=== PATIENT | male | born 1955 | race Caucasian/White ===

== ENCOUNTER 2016-04-13 08:05 | Inpatient (IN) | payer OTHER ==
[2016-03-25 14:35] VITALS: BMI 42.0
--- NOTE | 2016-03-25 15:11 | PAT Medication Instructions ---
Service Date Mar 25, 2016. Current Home Medication List Calcium/Vitamin D (Os-Jareth 500 Plus D), 1 TAB PO TID Cholecalciferol (Vitamin D3), 1 TAB PO QAM Cyanocobalamin (Vitamin B-12), 1,000 MCG PO QAM Ferrous Sulfate (Iron), 1 TAB PO QAM Multivitamin (Multivitamin), 1 TAB PO BID Tramadol (Ultram), 50 MG PO Q8H PRN for Pain Warfarin Sod (Jantoven), 10 MG PO ,,,WED, WED, S Warfarin Sod (Jantoven), 7.5 MG PO MON Medication Instructions For Your Scheduled Surgery Warfarin Sod (Jantoven) (patient will hold medication starting 04/07/16 per [facility] instructions) - Hold the following medications the morning of surgery: Multivitamin (Multivitamin), 1 TAB PO BID Cyanocobalamin (Vitamin B-12), 1,000 MCG PO QAM Ferrous Sulfate (Iron), 1 TAB PO QAM Cholecalciferol (Vitamin D3), 1 TAB PO QAM Calcium/Vitamin D (Os-Jareth 500 Plus D), 1 TAB PO TID - Take the following medications the morning of surgery with a sip of water: Tramadol (Ultram), 50 MG PO Q8H PRN for Pain (can take up to four hours prior to surgery if needed) - Take the following medications as scheduled the night before surgery: Tramadol (Ultram), 50 MG PO Q8H PRN for Pain Multivitamin (Multivitamin), 1 TAB PO BID Calcium/Vitamin D (Os-Jareth 500 Plus D), 1 TAB PO TID If you have any questions please call us at [phone] or [phone] ( Yelena) or [phone]
--- NOTE | 2016-03-25 15:42 | DIAGNOSTIC IMAGING REPORT ---
TWO VIEW CHEST CLINICAL HISTORY: Preoperative examination. FINDINGS: PA and lateral chest radiographs are obtained. No prior studies are available for comparison at the time of dictation. The cardiomediastinal silhouette is unremarkable. The lungs and pleural spaces are clear. There is no pneumothorax. The bony thorax appears intact. IMPRESSION: No active disease in the chest. Electronically signed by: King Quintana M.D. 03/25/2016 3:40 PM Dictated Date/Time: 03/25/2016 3:39 PM
[2016-03-25 16:22] LABS: BASO % 0.5 %; BASO ABS # 0.03 K/uL (0-0.2); COMPLETE YES; EOS % 4.6 %; HEMATOCRIT 43.9 % (42-52); IG% 0.2 %; LYMPH % 21.7 %; LYMPH ABS # 1.37 K/uL (1.2-3.4); MEAN CORPUSCULAR HEMOGLOBIN 31.2 pg (25-34); MEAN CORPUSCULAR HGB CONC 35.1 g/dl (32-36); MEAN PLATELET VOLUME 10.2 fL (7.4-10.4); MONO % 11.6 %; NEUT % 61.4 %; PLATELET COUNT 175 K/uL (130-400); RED BLOOD COUNT 4.93 M/uL (4.7-6.1); WHITE BLOOD COUNT 6.32 K/uL (4.8-10.8)
[2016-03-25 16:28] LABS: URINE APPEARANCE CLEAR (CLEAR); URINE BILIRUBIN NEG (NEG); URINE COLOR DK YELLOW; URINE NITRITE NEG (NEG); URINE PH 5.5 (4.5-7.5); URINE SPECIFIC GRAVITY 1.028 (1.000-1.030); UROBILINOGEN NEG (NEG); ZZUR CULT IF INDIC CLEAN CATCH NO
[2016-03-25 16:38] LABS: INR 1.9 (0.9-1.1); PARTIAL THROMBOPLASTIN RATIO 1.5; PROTHROMBIN TIME (PATIENT) 21.3 SECONDS (9.0-12.0)
[2016-03-25 16:45] LABS: BUN/CREATININE RATIO 13.5 (10-20); CALCIUM 9.4 mg/dl (8.5-10.1); CREATININE 1.1 mg/dl (0.60-1.40)
[2016-03-25 16:53] LABS: MANUAL MICROSCOPIC REQUIRED? NO; REVIEW REQ? NO
--- NOTE | 2016-04-07 13:12 | HISTORY & PHYSICAL EXAMINATION ---
DATE OF ADMISSION: 04/13/2016 CHIEF COMPLAINT: Left knee pain. HISTORY OF PRESENT ILLNESS: Mr. Yang is a 60-year-old male with a 20-year history of pain in his left knee. The patient rates his pain a 10/10. He has pain with his daily activities. He has limited standing and walking tolerance. Pain is worse with weightbearing. The patient uses a cane. He has had injections and tramadol. He is unable to take anti-inflammatories due to his chronic Coumadin therapy. PAST MEDICAL HISTORY: History of extensive DVT status post lumbar surgery. He denies heart disease or diabetes. PAST SURGICAL HISTORY: Bariatric surgery, lumbar surgery, bilateral knee arthroscopy, left knee micro surgery, right shoulder rotator cuff repair and appendectomy. SOCIAL HISTORY: The patient drinks alcohol occasionally. He quit smoking in 1994. He lives in a single [place] home. He is currently on disability. FAMILY HISTORY: Positive for DVT in his mom. MEDICATIONS: Calcium citrate 500 mg, multivitamin, iron, cholecalciferol 1000 international units, tramadol p.r.n., Coumadin as directed, cyanocobalamin 1 mg. ALLERGIES: None. REVIEW OF SYSTEMS: See HPI. Ten other systems reviewed, all negative. PHYSICAL EXAMINATION: VITAL SIGNS: Height 5 feet 9 inches, weight 292 pounds. BMI is 43. GENERAL: This is a well-developed, well-nourished male who is alert and oriented x3. Mood and affect are appropriate. HEENT: Normocephalic, atraumatic. Mucous membranes are moist and intact. NECK: Supple without lymphadenopathy. HEART: Regular rate and rhythm without murmurs, rubs or gallops. LUNGS: Clear to auscultation without wheezes or rhonchi. ABDOMEN: Soft and nontender. EXTREMITIES: No ecchymosis, redness or warmth. Left knee shows neutral alignment. Range of motion is from 3-90 degrees. He has +1 laxity. He is neurovascularly intact with +5/5 strength. X-RAY EXAMINATION: AP and lateral views show joint space narrowing and osteophyte formation. IMPRESSION: Degenerative joint disease, left knee. PLAN: The patient will be admitted for a left total knee arthroplasty. We will plan on resuming Coumadin for DVT prophylaxis. The patient is bridging per his hematology consult. He will be on 1.5 mg/kg until his INR is therapeutic. He will have [facility] for home physical therapy.
[2016-04-13] VITALS (8 sets, daily range): BP systolic 99–123; BP diastolic 59–77; PULSE 52–68; TEMP 36.4–36.7; O2SAT 94–98; Ht 175.3 cm; Wt 130.9 kg
[~2016-04-13] VITALS: Ht 175.3 cm; Wt 130.9 kg
[~2016-04-13 08:05] MED LIST: ACETAMINOPHEN 500 MG TAB PO SCH; BACITRACIN 50000 UNIT VIAL ONE; BUPIVACAINE 0.5 % 5 MG/1 ML PF 10ML VIAL ONE; BUPIVACAINE/EPINEPHRINE 0.25% 1:200,000 30 ML VIAL ONE; CALC500C70 PO; CEFAZOLIN 3000 MG/65 ML D5W 65 ML IV SCH; CHOL1000 PO; CYAN10005 PO; CeleBREX 200 MG CAP PO SCH; FAMOTIDINE 20 MG TAB PO SCH; FERR28TA2 PO; GABAPENTIN 300 MG CAP PO SCH; LACTATED RINGER'S 1000ML 1,000 ML IV SCH; LACTATED RINGER'S 1000ML 500 ML IV ONE; LACTATED RINGER'S 1000ML IV SCH; METOCLOPRAMIDE HCL 10 MG TAB PO SCH; MULT-506 PO; ORTHO JOINT ANESTHETIC ONE; OXYCODONE HCL 10 MG TABCR (OXYCONTIN) PO SCH; POLYMYXIN B SULFATE 100,000 UNITS in NSS 100ML IR SCH; POVIDONE-IODINE OP SOLN 30 ML BTL ONE; ROPIVACAINE 5MG/ML 30 ML 150 MG, BUPIVACAINE/EPINEPHR 0.5% MPF 30 ML, KETOROLAC TROMETH... INFIL SCH; TRAM-10 PO; VANCOMYCIN INJ 400 MG in NSS 100ML IR SCH; WARF5TAB7 PO
[2016-04-13] MEDS ORDERED: ONDANSETRON INJ 2 MG/ML 2 ML VIAL IV PRN ×2 (08:30→13:15)
[2016-04-13] MEDS ORDERED: EpHEDrine SULFATE INJ 50 MG/ML AMP IV PRN (08:30)
[2016-04-13] MEDS ORDERED: FENTANYL CITRATE INJ 50 MCG/1 ML 2 ML VIAL IV PRN (08:30)
[2016-04-13] MEDS ORDERED: ATROPINE SULFATE 0.1 MG/ML 5ML SYR IV PRN (08:30)
[2016-04-13] MEDS ORDERED: ENOX120I SQ (09:05)
[2016-04-13 09:13] LABS: PROTHROMBIN TIME (PATIENT) 10.7 SECONDS (9.0-12.0)
[2016-04-13] MEDS ORDERED: MIDAZOLAM HCL 1 MG/ML 2ML VIAL ONE ×2 (10:06→11:52)
--- NOTE | 2016-04-13 10:16 | History & Physical Bridge Note ---
H&P Re-Evaluation Bridge Note: I have examined the patient, reviewed the History & Physical and in the interval since the performance of the History & Physical I have noted the following changes of clinical significance: No changes noted
[2016-04-13] MEDS ORDERED: PROPOFOL IV EMULSION 10 MG/ML 20 ML VIAL IV ONE ×2 (11:57→12:59)
[2016-04-13] MEDS ORDERED: BACITRACIN 50000 UNIT VIAL IR ONE (13:06)
[2016-04-13] MEDS ORDERED: POVIDONE-IODINE OP SOLN 30 ML BTL TOP ONE (13:06)
--- NOTE | 2016-04-13 13:09 | [facility] Post Operative Brief Note ---
Immediate Operative Summary Operative Date Apr 13, 2016. Pre-Operative Diagnosis Degenerative joint disease, left knee Post-Operative Diagnosis Same as preop Procedure(s) Performed Left total knee arthroplasty Surgeon Dr. Babb Accounts Payable Analyst Surgeon(s) Albina Lieberman PA-C Estimated Blood Loss 5 cc Findings djd severe Specimens A: left knee bone and tissue Complication(s) None Disposition Recovery Room / PACU
[2016-04-13] MEDS ORDERED: ALUMINUM/MAGNESIUM/SIMETH (MAALOX MAX) 30 ML UDC PO PRN (13:15)
[2016-04-13] MEDS ORDERED: KETOROLAC TROMETHAMINE 30 MG/ML VIAL IV. PRN (13:15)
[2016-04-13] MEDS ORDERED: SOD PHOSPHATE/SOD BIPHOSPHATE ENEMA 132 ML BTL PR PRN (13:15)
[2016-04-13] MEDS ORDERED: ZOLPIDEM TARTRATE 5 MG TAB PO PRN (13:15)
[2016-04-13] MEDS ORDERED: MAGNESIUM HYDROXIDE SUSP 30 ML UDC PO PRN (13:15)
[2016-04-13] MEDS ORDERED: MoRPHine SULFATE 2 MG/ML CARP IV PRN (13:15)
[2016-04-13] MEDS ORDERED: BISACODYL 10 MG SUPP PR PRN (13:15)
[2016-04-13] MEDS ORDERED: DiphenhydrAMINE HCL 50 MG/ML VIAL IV PRN (13:15)
[2016-04-13] MEDS ORDERED: METOCLOPRAMIDE HCL INJ 5 MG/ML 2 ML VIAL IV PRN (13:15)
[2016-04-13] MEDS ORDERED: TRAMADOL HCL 50 MG TAB PO PRN (13:15)
--- NOTE | 2016-04-13 13:52 | DIAGNOSTIC IMAGING REPORT ---
TWO VIEWS LEFT KNEE CLINICAL HISTORY: Postoperative examination. FINDINGS: AP and crosstable lateral portable views of the left knee are obtained. A left knee arthroplasty is in near anatomic alignment. There has been undersurface remodeling of the patella. No acute fracture is seen. There are expected postoperative changes around the knee including skin clips, a surgical drain, soft tissue edema, and subcutaneous gas. IMPRESSION: Expected postoperative changes status post left knee arthroplasty. No acute fracture is seen. Electronically signed by: King Quintana M.D. 04/13/2016 1:51 PM Dictated Date/Time: 04/13/2016 1:51 PM
--- NOTE | 2016-04-13 14:34 | Anesthesiology Progress Note ---
Anesthesia Post Op Note Date & Time Apr 13, 2016 at 14:35 Vital Signs Pain Intensity: 0 Vital Signs Past 12 Hours Date Time Temp Pulse Resp B/P Pulse Ox O2 Delivery O2 Flow Rate FiO2 04/13/16 14:25 36.7 56 20 106/65 95 Nasal Cannula 2 04/13/16 14:15 49 12 99/61 98 Nasal Cannula 2 04/13/16 14:05 50 13 94/50 97 Nasal Cannula 2 04/13/16 13:55 57 16 95/46 95 Nasal Cannula 2 04/13/16 13:45 60 19 87/47 96 Nasal Cannula 2 04/13/16 13:39 36.9 64 16 88/51 99 Mask 10 04/13/16 09:10 36.7 60 18 123/64 94 Room Air Notes Mental Status: alert / awake / arousable, participated in evaluation Pt Amnestic to Procedure: Yes Nausea / Vomiting: adequately controlled Pain: adequately controlled Airway Patency, RR, SpO2: stable & adequate BP & HR: stable & adequate Hydration State: stable & adequate Neuraxial Anesthesia: was administered, sensory block is resolving Anesthetic Complications: no major complications apparent
[2016-04-13] MEDS: D5W AND 1/2NSS + 20MEQ KCL 1,000 ML IV SCH (15:44)
[2016-04-13] MEDS: ACETAMINOPHEN 500 MG TAB PO SCH ×2 (15:44→21:46)
[2016-04-13] MEDS: WARFARIN SOD 10 MG TAB PO SCH (15:45)
[2016-04-13] MEDS: CEFAZOLIN IV 2,000 MG in DEXTROSE 5% 50ML 50 ML IV SCH (20:24)
[2016-04-13] MEDS: OXYCODONE HCL 10 MG TABCR (OXYCONTIN) PO SCH (20:27)
[2016-04-13] MEDS: SENNA 8.6 MG TAB PO SCH (20:27)
[2016-04-13] MEDS: CALCIUM 600MG + VIT D 400 IU TAB PO SCH (20:27)
--- NOTE | 2016-04-13 22:29 | OPERATIVE REPORT ---
DATE OF OPERATION: 04/13/2016 PREOPERATIVE DIAGNOSES: 1. Degenerative arthritis, left knee. 2. Morbid obesity, BMI of 43. POSTOPERATIVE DIAGNOSES: Same. PROCEDURE: Left total knee with patient-matched implant. SURGEON: Dr. Babb. MARKET DEVELOPMENT DIRECTOR: EREN Klein. ANESTHESIA: Spinal. TOURNIQUET TIME: 75 minutes at 300 mmHg. DRAINS: Hemovac x2. CULTURES: None. COMPLICATIONS: None. COMPONENTS USED: [employer] Journey Knee System: Femur size 8, tibia size 7 x 11, patella size 38. NOTE: EREN Klein, was present and assisted throughout due to the complicated nature of this case. He helped with preparation and setup, he first-assisted throughout, he personally closed the capsule, subcutaneous and skin layers, and applied the postop dressing. DESCRIPTION: Following satisfactory spinal, the patient was supine, a tourniquet was placed. The lower extremity was prepared with ChloraPrep and draped sterilely. Following a surgical timeout, the tourniquet was inflated because of the patient's history of severe posttraumatic arthritis with multiple previous surgeries and his morbidly obese body habitus. A midline incision was made with a median parapatellar arthrotomy. Exposure was difficult given the patient's body habitus. The knee showed grade 4 changes throughout with evidence of old repair of a medial collateral ligament tear. The cruciate ligament was excised. The patient-matched femoral block was applied. Femoral distal rotation and resection were set and completed. The 4-in-1 block was used to finish preparation of the femur. The patient-matched tibial block was applied after removal of soft tissue. Tibial resection was completed. The patella was then freehand cut. Soft tissue balancing was completed in flexion and extension and a trial reduction showed very good tensioning on the collateral ligaments, stable range of motion, and good patellar tracking. The trial components were removed. The capsule was prepared with the orthopedic cocktail. After irrigation, the components were cemented using Simplex G cement. A Betadine soak was performed. When the cement had hardened, the Betadine was irrigated. Two drains were placed. The arthrotomy was closed with #1 Vicryl interrupted. Subcutaneous tissues were closed with 1 and 2-0 Vicryl. The skin was closed with surgical richa. A surface wound VAC was applied. The tourniquet was deflated. The patient was returned to his bed in stable condition. I attest to the content of the Intraoperative Record and any orders documented therein. Any exceptio ns are noted below.
[2016-04-14 00:10] VITALS: BP 95/58; PULSE 48
[2016-04-14] MEDS: D5W AND 1/2NSS + 20MEQ KCL 1,000 ML IV SCH ×2 (01:29→11:50)
[2016-04-14] MEDS: CEFAZOLIN IV 2,000 MG in DEXTROSE 5% 50ML 50 ML IV SCH (03:33)
[2016-04-14 03:36] VITALS: BP 93/58; PULSE 50; TEMP 36.4; O2SAT 95
[2016-04-14] MEDS: ACETAMINOPHEN 500 MG TAB PO SCH ×3 (05:59→21:49)
[2016-04-14 07:22] VITALS: BP 105/53; PULSE 48; TEMP 36.4; O2SAT 94
[2016-04-14 07:34] LABS: MEAN CELL VOLUME 88.1 fL (80-100); MEAN CORPUSCULAR HEMOGLOBIN 31.1 pg (25-34); MEAN CORPUSCULAR HGB CONC 35.3 g/dl (32-36); MEAN PLATELET VOLUME 9.9 fL (7.4-10.4); PLATELET COUNT 139 K/uL (130-400); RED BLOOD COUNT 3.86 M/uL (4.7-6.1); WHITE BLOOD COUNT 9.42 K/uL (4.8-10.8)
[2016-04-14 07:41] LABS: INR 1.1 (0.9-1.1); PROTHROMBIN TIME (PATIENT) 11.6 SECONDS (9.0-12.0)
[2016-04-14 07:56] LABS: CALCIUM 8.5 mg/dl (8.5-10.1); POTASSIUM 4.4 mmol/L (3.5-5.1)
--- NOTE | 2016-04-14 08:00 | Orthopedic Progress Note ---
Orthopedic Progress Note Date of Service Apr 14, 2016. Subjective Post OP Day: 1 Reports: feeling well, Denies: SOB, calf pain, chest pain, light headedness, nausea / vomiting Objective calves soft nontender, N/V intact, dressing C/D/I, A&O x3, toes mobile, hemovac drainage (875/215CC PER SHIFT) Date Time Temp Pulse Resp B/P Pulse Ox O2 Delivery O2 Flow Rate FiO2 04/14/16 07:22 36.4 48 17 105/53 94 Room Air 04/14/16 03:36 36.4 50 18 93/58 95 Room Air 04/14/16 00:10 48 95/58 04/13/16 23:15 Room Air 04/13/16 22:55 36.4 53 18 99/59 94 Room Air 04/13/16 19:33 36.5 68 18 103/64 94 Room Air 04/13/16 18:00 61 16 112/72 96 Nasal Cannula 2.0 04/13/16 16:58 36.4 65 16 117/77 96 Nasal Cannula 2.0 04/13/16 16:12 36.4 55 16 120/68 97 Nasal Cannula 2.0 04/13/16 15:30 36.5 52 16 115/68 98 Nasal Cannula 2.0 04/13/16 15:00 96 Nasal Cannula 2.0 04/13/16 15:00 96 Nasal Cannula 2.0 04/13/16 15:00 36.6 55 16 101/64 96 Nasal Cannula 2.0 04/13/16 14:40 52 16 105/60 96 Nasal Cannula 2 04/13/16 14:25 36.7 56 20 106/65 95 Nasal Cannula 2 04/13/16 14:15 49 12 99/61 98 Nasal Cannula 2 04/13/16 14:05 50 13 94/50 97 Nasal Cannula 2 04/13/16 13:55 57 16 95/46 95 Nasal Cannula 2 04/13/16 13:45 60 19 87/47 96 Nasal Cannula 2 04/13/16 13:39 36.9 64 16 88/51 99 Mask 10 04/13/16 09:10 36.7 60 18 123/64 94 Room Air Laboratory Results 24 Hours: Test 04/13/16 08:48 04/14/16 07:14 Prothromb Time International Ratio 1.0 1.1 Prothrombin Time 10.7 SECONDS 11.6 SECONDS Hematocrit 34.0 % Hemoglobin 12.0 g/dL Assessment & Plan Assessment: POD#1 SP LEFT TKA HISTORY OF EXTENSIVE DVT Inhouse Planning Pain Management: Celebrex, Oxycontin, PO Tylenol, Oxy IR DVT Prophylaxis: TEDs, SCDs, Coumadin, Lovenox Discharge Planning Discharge Planning: home with home health ([facility] WILL NEED NURSING FOR BLOOD DRAWS)
--- NOTE | 2016-04-14 08:11 | Discharge Instructions ---
Discharge Instructions Admission Reason for Admission: Left Knee Degenerative Arthritis Discharge Discharge Diagnosis / Problem: sp left TKA Discharge Goals Goal(s): Decrease discomfort, Improve function, Increase independence Activity Recommendations Activity Limitations: per Instructions/Follow-up section . Instructions / Follow-Up Instructions / Follow-Up ACTIVITY RECOMMENDATIONS: SELF CARE INSTRUCTIONS AFTER TOTAL KNEE REPLACEMENT A. You may need to continue a physical therapy program after discharge from the hospital. There are several options available to you. Your doctor will assist you in selecting the best one for you. 1. An out-patient facility 2 to 3 times a week for therapy or home therapy. 2. Continue working on all exercises taught to you in the hospital. Your goals should be to increase bending of your knee to 90 degrees and beyond and to fully straighten your knee. B. You may progress at your own pace from walking with a walker or crutches to a cane; then to no assistive devices. C. Make walking a part of your daily routine. Be up as much as comfortable with rest periods throughout the day. Rest with leg elevation is very important. Use the ice wrap frequently for the first 3-4 weeks. D. There are no restrictions on activities. You may ride in a car, shop, participate in machine set up operator and all social activities. E. Wear the long elastic stockings (GWEN hose) 20 hours a day for 2 weeks after surgery. They can be removed several times a day for laundering and for a bath. F. You may shower, no tub baths until cleared by your doctor. SPECIAL CARE INSTRUCTIONS: VERY IMPORTANT TO READ AND REVIEW A. There are a few signs you need to watch for after you are home. Call [facility] if you notice any of the followin. Increased severe knee pain. Some pain is expected especially when you exercise. 2. Increased swelling in your leg or knee; pain or swelling of the calf muscle in either lower leg. 3. Any fluid drainage from the incision. 4. Shortness of breath or chest pain. B. Please call [facility] at if you have any concerns or questions about your operation or recovery. The doctor or his nurse will return your call promptly. C. You must take antibiotics before dental work, bladder, bowel or other surgery. Your doctor will provide you with a permanent care to carry describing this precaution. IMPORTANT: * HIGH RISK PATIENTS MAY BE PRESCRIBED A STRONGER BLOOD THINNER. THIS WILL BE PROVIDED AT DISCHARGE. ----LOVENOX + COUMADIN. WILL REQUIRE FRQUENT BLOOD DRAWS. ONCE INR >2.0 MAY STOP LOVENOX INJECTIONS. * CALL IF INCREASED PAIN, REDNESS, DRAINAGE OR FEVER GREATER THAT 101. * WEAR GWEN HOSE 20 HOURS PER DAY FOR 2 WEEKS. * YOU MAY HAVE A LARGE BAND-AID LIKE DRESSING (SILVERON). THIS WILL REMAIN ON YOUR INCISION FOR 7 DAYS, THEN CAN BE REMOVED. IF INCISION IS LEAKING THROUGH DRESSING, CALL THE OFFICE . FOLLOW UP VISIT: If appointment is not already scheduled: Please call [facility] to make a follow-up appointment for 2 weeks after your surgery at . Current Hospital Diet Patient's current hospital diet: Regular Diet Discharge Diet Recommended Diet: Regular Diet Procedures Procedures Performed: Left total knee arthroplasty Pending Studies Studies pending at discharge: no Medical Emergencies . Who to Call and When: Medical Emergencies: If at any time you feel your situation is an emergency, please call [phone] immediately. . Non-Emergent Contact Non-Emergency issues call your: Primary Care Provider . "Provider Documentation" section prepared by Alma Barnett. VTE Core Measure Inpt VTE Proph given/why not?: Enoxaparin (Lovenox)SQ, Warfarin (Coumadin), T.E.D. Stockings, SCD's
[2016-04-14] MEDS: OXYCODONE HCL IR 5 MG TAB (IMMEDIATE RELEASE) PO PRN ×3 (09:25→20:38)
[2016-04-14] MEDS: OXYCODONE HCL 10 MG TABCR (OXYCONTIN) PO SCH ×2 (09:26→20:38)
[2016-04-14] MEDS: CYANOCOBALAMIN 500 MCG TAB (VIT B-12) PO SCH (09:26)
[2016-04-14] MEDS: MULTIVITAMIN TAB PO SCH (09:26)
[2016-04-14] MEDS: PANTOprazole SOD 40 MG TAB PO SCH (09:26)
[2016-04-14] MEDS: CALCIUM 600MG + VIT D 400 IU TAB PO SCH ×3 (09:26→20:38)
[2016-04-14] MEDS: CHOLECALCIFEROL 1000 INTER.UNIT TAB PO SCH (09:27)
[2016-04-14] MEDS: ENOXAPARIN 40 MG/0.4 ML SYR SQ SCH (09:28)
[2016-04-14 11:35] VITALS: BP 105/66; PULSE 62; TEMP 36.5; O2SAT 97
[2016-04-14 14:57] VITALS: BP 115/69; PULSE 66; TEMP 36.6; O2SAT 97
[2016-04-14] MEDS: WARFARIN SOD 10 MG TAB PO SCH (16:58)
[2016-04-14] MEDS: SENNA 8.6 MG TAB PO SCH (20:37)
[2016-04-14 23:05] VITALS: BP 121/71; PULSE 75; TEMP 36.5; O2SAT 97
[2016-04-15] MEDS: ACETAMINOPHEN 500 MG TAB PO SCH (05:16)
[2016-04-15 06:59] VITALS: BP 123/79; PULSE 74; TEMP 36.7; O2SAT 95
[2016-04-15] MEDS: OXYCODONE HCL IR 5 MG TAB (IMMEDIATE RELEASE) PO PRN ×2 (07:20→11:35)
[2016-04-15] MEDS: OXYCODONE HCL 10 MG TABCR (OXYCONTIN) PO SCH (07:21)
[2016-04-15] MEDS: MULTIVITAMIN TAB PO SCH (07:22)
[2016-04-15] MEDS: CYANOCOBALAMIN 500 MCG TAB (VIT B-12) PO SCH (07:22)
[2016-04-15] MEDS: CALCIUM 600MG + VIT D 400 IU TAB PO SCH (07:22)
[2016-04-15] MEDS: PANTOprazole SOD 40 MG TAB PO SCH (07:23)
[2016-04-15] MEDS: CHOLECALCIFEROL 1000 INTER.UNIT TAB PO SCH (07:23)
--- NOTE | 2016-04-15 08:02 | Orthopedic Progress Note ---
Orthopedic Progress Note Date of Service Apr 15, 2016. Subjective Post OP Day: 2 Reports: feeling well, Denies: SOB, calf pain, chest pain, light headedness, nausea / vomiting Objective calves soft nontender, N/V intact, incision C/D/I, A&O x3, toes mobile Date Time Temp Pulse Resp B/P Pulse Ox O2 Delivery O2 Flow Rate FiO2 04/15/16 07:20 Room Air 04/15/16 06:59 36.7 74 18 123/79 95 Room Air 04/14/16 23:05 36.5 75 18 121/71 97 Room Air 04/14/16 20:30 Room Air 04/14/16 14:57 36.6 66 17 115/69 97 Room Air 04/14/16 11:35 36.5 62 16 105/66 97 Room Air Assessment & Plan Assessment: POD#2 SP LEFT TKA HISTORY OF EXTENSIVE DVT Inhouse Planning Pain Management: Celebrex, Oxycontin, PO Tylenol, Oxy IR DVT Prophylaxis: TEDs, SCDs, Coumadin, Lovenox Discharge Planning Discharge Planning: home with home health ([facility] WILL NEED NURSING FOR BLOOD DRAWS)
[2016-04-15 08:06] VITALS: BP 132/90; PULSE 74; TEMP 36.6; O2SAT 98
[2016-04-15] MEDS ORDERED: RXC5 PO (08:09)
[2016-04-15] MEDS ORDERED: SNK PO (08:09)
[2016-04-15] MEDS ORDERED: ONDA8TAB6 PO (08:09)
[2016-04-15] MEDS ORDERED: CLB200 PO (08:09)
[2016-04-15] MEDS ORDERED: ACET-1138 PO (08:09)
[2016-04-15] MEDS ORDERED: LVNIS40 SQ (08:09)
[2016-04-15] MEDS ORDERED: MORP-157 PO (08:09)
[2016-04-15 08:29] VITALS: O2SAT 98
[2016-04-15] MEDS: ENOXAPARIN 40 MG/0.4 ML SYR SQ SCH (08:36)
[2016-04-15 10:03] VITALS: BP 132/90; PULSE 74; TEMP 36.6; O2SAT 98
--- NOTE | 2016-04-15 11:47 | DISCHARGE SUMMARY ---
DATE OF DISCHARGE: 04/15/2016. DISCHARGE DIAGNOSIS: Degenerative joint disease left knee. SECONDARY DIAGNOSES: History of extensive deep venous thrombosis status post lumbar surgery. CONSULTS: None. COMPLICATIONS: None. PROCEDURES: Left total knee arthroplasty performed by Dr. Nolan Babb on 04/13/2016. BRIEF HISTORY: As dictated in history and physical. HOSPITAL SUMMARY: The patient was admitted on the above date and had the above-noted surgery performed which he tolerated well. On his first postoperative day, he was feeling well and had no complaints. Calves were soft, nontender, neurovascularly intact. Dressings clean, dry and intact. Toes were mobile. Vital signs were stable. He was afebrile. Hemoglobin was 12.0 and he was started on physical therapy protocol and continued on DVT prophylaxis with Coumadin and Lovenox bridging. By his second postoperative day, he continued to progress well and was remaining stable. He had no complaints. Incision was benign. Toes were mobile. Vital signs were stable. He was afebrile. He was progressing well with his physical therapy and it was felt he could be discharged to home with home health services including blood draws for PT/INR. For further review, please see chart. LAB AND X-RAY DATA: As per chart. DISCHARGE INSTRUCTIONS: The patient was discharged to home in satisfactory condition on 04/15/2016. DIET: Regular. ACTIVITY: Follow TKA instruction sheets and special care instructions as noted including Lovenox bridging with Coumadin with frequent blood draws per home health services. Once INR is greater than 2.0 stop Lovenox injections and follow up with Dr. Nolan Babb in 2 weeks. The patient to call for appointment if one has not been made for you. DISCHARGE MEDICATIONS: Acetaminophen 1000 mg p.o. q. 8 hours, Celebrex 200 mg p.o. b.i.d., enoxaparin 40 mg daily until INR 2.0 or greater, MS Contin 15 mg p.o. q. 12 hours, Zofran 8 mg p.o. q. 8 hours p.r.n., oxycodone 5-10 mg p.o. q. 4 hours p.r.n., senna 17.2 mg p.o. at bedtime. Resume taking Os-Jareth 500 plus D 1 tab p.o. t.i.d., vitamin D3 one tab p.o. q.a.m., vitamin B12 1000 mcg p.o. q.a.m., ferrous sulfate 1 tab p.o. q.a.m., multivitamin 1 tab p.o. b.i.d., tramadol 50 mg p.o. q. 8 hours p.r.n. pain, warfarin 10 mg p.o. Wednesday, Wednesday, , Wednesday, Wednesday and Wednesday, 7.5 mg p.o. on Wednesday. Stop taking the 120 mg dose of enoxaparin.
[2016-04-15] MEDS ORDERED: CeleBREX 200 MG CAP PO SCH (21:00)
== END 2016-04-15 12:20 | disposition home health service (06) | DRG 470 ==
LOC: ENRESERVDT → ENRESERVTM → C.ACU 08:05 → C.3E 13:16
PROVIDERS: ADMIT Orthopaedic Surgery; ATTEND Orthopaedic Surgery
PROC: 0SRD0J9 Replacement of Left Knee Joint with Synthetic Substitute, Cemented, Open Approach (ICD-10-PCS; principal; 2016-04-13 10:30)
DX: M17.12 Unilateral primary osteoarthritis, left knee (principal); Z68.41 Body mass index [BMI] 40.0-44.9, adult; E66.01 Morbid (severe) obesity due to excess calories; Z86.718 Personal history of other venous thrombosis and embolism; Z87.891 Personal history of nicotine dependence; Z79.01 Long term (current) use of anticoagulants; Z98.84 Bariatric surgery status; Z98.890 Other specified postprocedural states; Z83.2 Family history of diseases of the blood and blood-forming organs and certain disorders involving the immune mechanism

== ENCOUNTER → 2016-04-17 | Outpatient (CLI) | payer OTHER ==
[~2016-04-17] MED LIST changes: +ACET-1138 PO; -ACETAMINOPHEN 500 MG TAB PO SCH; -BACITRACIN 50000 UNIT VIAL ONE; -BUPIVACAINE 0.5 % 5 MG/1 ML PF 10ML VIAL ONE; -BUPIVACAINE/EPINEPHRINE 0.25% 1:200,000 30 ML VIAL ONE; -CEFAZOLIN 3000 MG/65 ML D5W 65 ML IV SCH; +CLB200 PO; -CeleBREX 200 MG CAP PO SCH; -FAMOTIDINE 20 MG TAB PO SCH; -GABAPENTIN 300 MG CAP PO SCH; -LACTATED RINGER'S 1000ML 1,000 ML IV SCH; -LACTATED RINGER'S 1000ML 500 ML IV ONE; -LACTATED RINGER'S 1000ML IV SCH; +LVNIS40 SQ; -METOCLOPRAMIDE HCL 10 MG TAB PO SCH; +MORP-157 PO; +ONDA8TAB6 PO; -ORTHO JOINT ANESTHETIC ONE; -OXYCODONE HCL 10 MG TABCR (OXYCONTIN) PO SCH; -POLYMYXIN B SULFATE 100,000 UNITS in NSS 100ML IR SCH; -POVIDONE-IODINE OP SOLN 30 ML BTL ONE; -ROPIVACAINE 5MG/ML 30 ML 150 MG, BUPIVACAINE/EPINEPHR 0.5% MPF 30 ML, KETOROLAC TROMETH... INFIL SCH; +RXC5 PO; +SNK PO; -VANCOMYCIN INJ 400 MG in NSS 100ML IR SCH
[2016-04-17 12:05] LABS: INR 1.2 (0.9-1.1); PROTHROMBIN TIME (PATIENT) 13.3 SECONDS (9.0-12.0)
--- NOTE | 2016-05-08 09:05 | CODING QUERY NO DIAGNOSIS ---
Valid Physician Order Needed A valid physician order must be submitted in order to properly bill for the service(s) provided, including date of service(s), valid diagnosis, and physician signature. If these tests are done on a recurring basis the original physican order must be submitted in order to code and bill for the service(s) provided. Please fax us the original, signed physician order so that we may expedite billing to [phone] DOS 04/17/2016 * PROTHROMBIN TIME Thank you Selvin [facility] Information Management
== END | disposition home or self-care (01) ==
LOC: C.LABSPEC 11:42
PROVIDERS: ATTEND Orthopaedic Surgery
DX: Z47.1 Aftercare following joint replacement surgery (principal); Z96.652 Presence of left artificial knee joint; M19.91 Primary osteoarthritis, unspecified site; M06.9 Rheumatoid arthritis, unspecified; G47.30 Sleep apnea, unspecified

== ENCOUNTER → 2016-04-20 | Outpatient (CLI) | payer OTHER ==
[2016-04-20 14:02] LABS: INR 1.8 (0.9-1.1); PROTHROMBIN TIME (PATIENT) 19.2 SECONDS (9.0-12.0)
== END | disposition home or self-care (01) ==
LOC: C.LABSPEC 12:41
PROVIDERS: ATTEND Orthopaedic Surgery
DX: Z79.01 Long term (current) use of anticoagulants (principal); Z51.81 Encounter for therapeutic drug level monitoring

== ENCOUNTER → 2016-04-24 | Outpatient (CLI) | payer OTHER ==
[2016-04-24 12:24] LABS: INR 2.1 (0.9-1.1); PROTHROMBIN TIME (PATIENT) 23.1 SECONDS (9.0-12.0)
== END | disposition home or self-care (01) ==
LOC: C.LABSPEC 11:09
PROVIDERS: ATTEND Orthopaedic Surgery
DX: Z79.01 Long term (current) use of anticoagulants (principal); Z51.81 Encounter for therapeutic drug level monitoring

== ENCOUNTER → 2016-04-28 | Outpatient (CLI) | payer OTHER ==
[~2016-04-28] MED LIST changes: -MORP-157 PO
[2016-04-28 11:59] LABS: INR 2.1 (0.9-1.1); PROTHROMBIN TIME (PATIENT) 23.7 SECONDS (9.0-12.0)
--- NOTE | 2016-04-29 10:33 | CODING QUERY NO DIAGNOSIS ---
Valid Physician Order Needed A valid physician order must be submitted in order to properly bill for the service(s) provided, including date of service(s), valid diagnosis, and physician signature. If these tests are done on a recurring basis the original physican order must be submitted in order to code and bill for the service(s) provided. Please fax us the original, signed physician order so that we may expedite billing to [phone] DOS 04/28/2016 * PROTHROMBIN TIME Thank you Victoria Dailey [facility] Information Management
== END | disposition home or self-care (01) ==
LOC: C.LABSPEC 11:37
PROVIDERS: ATTEND Orthopaedic Surgery
DX: Z51.81 Encounter for therapeutic drug level monitoring (principal); Z79.01 Long term (current) use of anticoagulants

== ENCOUNTER → 2016-05-04 | Outpatient (CLI) | payer OTHER ==
[2016-05-04 14:13] LABS: INR 2.6 (0.9-1.1); PROTHROMBIN TIME (PATIENT) 29.2 SECONDS (9.0-12.0)
== END | disposition home or self-care (01) ==
LOC: C.LABSPEC 16:29
PROVIDERS: ATTEND Nurse Practitioner Family
DX: Z79.01 Long term (current) use of anticoagulants (principal); Z51.81 Encounter for therapeutic drug level monitoring

== ENCOUNTER → 2016-05-11 | Outpatient (CLI) | payer OTHER ==
[2016-05-11 14:31] LABS: INR 2.6 (0.9-1.1); PROTHROMBIN TIME (PATIENT) 29.1 SECONDS (9.0-12.0)
--- NOTE | 2016-05-21 08:38 | CODING QUERY NO DIAGNOSIS ---
Valid Physician Order Needed 57 A valid physician order must be submitted in order to properly bill for the service(s) provided, including date of service(s), valid diagnosis, and physician signature. If these tests are done on a recurring basis the original physician order must be submitted in order to code and bill for the service(s) provided. Please fax us the original, signed physician order so that we may expedite billing to [phone] DOS 05/11/2016 * PROTHROMBIN TIME Thank you Edilma [facility] Information Management
== END | disposition home or self-care (01) ==
LOC: C.LABSPEC 12:15
PROVIDERS: ATTEND Orthopaedic Surgery
DX: Z79.01 Long term (current) use of anticoagulants (principal); Z47.1 Aftercare following joint replacement surgery; Z96.652 Presence of left artificial knee joint; M19.91 Primary osteoarthritis, unspecified site

== ENCOUNTER → 2016-05-18 | Outpatient (CLI) | payer OTHER ==
[2016-05-18 14:33] LABS: INR 2.8 (0.9-1.1); PROTHROMBIN TIME (PATIENT) 31.4 SECONDS (9.0-12.0)
--- NOTE | 2016-05-20 13:07 | CODING QUERY NO DIAGNOSIS ---
Valid Physician Order Needed A valid physician order must be submitted in order to properly bill for the service(s) provided, including date of service(s), valid diagnosis, and physician signature. If these tests are done on a recurring basis the original physician order must be submitted in order to code and bill for the service(s) provided. Please fax us the original, signed physician order so that we may expedite billing to [phone] DOS 05/18/2016 * PROTHROMBIN TIME Thank you Selvin [facility] Information Management
== END | disposition home or self-care (01) ==
LOC: C.LABSPEC 14:05
PROVIDERS: ATTEND Orthopaedic Surgery
DX: Z47.1 Aftercare following joint replacement surgery (principal); M19.91 Primary osteoarthritis, unspecified site; Z96.652 Presence of left artificial knee joint

== ENCOUNTER → 2016-06-08 | Outpatient (CLI) | payer OTHER ==
[2016-06-08 13:38] LABS: INR 2.7 (0.9-1.1); PROTHROMBIN TIME (PATIENT) 30.1 SECONDS (9.0-12.0)
--- NOTE | 2016-06-10 06:21 | CODING QUERY NO DIAGNOSIS ---
Valid Physician Order Needed A valid physician order must be submitted in order to properly bill for the service(s) provided, including date of service(s), valid diagnosis, and physician signature. If these tests are done on a recurring basis the original physican order must be submitted in order to code and bill for the service(s) provided. Please fax us the original, signed physician order so that we may expedite billing to [phone] DOS 06/08/16 * PT/INR ORDERED BY DR. CERVANTES Thank you Tamara [facility] Information Management
== END | disposition home or self-care (01) ==
LOC: C.LABSPEC 12:58
PROVIDERS: ATTEND Orthopaedic Surgery
DX: Z51.81 Encounter for therapeutic drug level monitoring (principal); Z79.01 Long term (current) use of anticoagulants

== ENCOUNTER → 2016-06-15 | Outpatient (CLI) | payer OTHER ==
[2016-06-15 14:46] LABS: INR 2.5 (0.9-1.1); PROTHROMBIN TIME (PATIENT) 28.3 SECONDS (9.0-12.0)
--- NOTE | 2016-06-16 06:30 | CODING QUERY NO DIAGNOSIS ---
Valid Physician Order Needed A valid physician order must be submitted in order to properly bill for the service(s) provided, including date of service(s), valid diagnosis, and physician signature. If these tests are done on a recurring basis the original physican order must be submitted in order to code and bill for the service(s) provided. Please fax us the original, signed physician order so that we may expedite billing to [phone] DOS 06/15/16 * PT/INR [facility]
== END | disposition home or self-care (01) ==
LOC: C.LABSPEC 14:07
PROVIDERS: ATTEND Orthopaedic Surgery
DX: Z51.81 Encounter for therapeutic drug level monitoring (principal); Z79.01 Long term (current) use of anticoagulants

== ENCOUNTER 2020-05-28 07:32 | Inpatient (IN) ==
--- NOTE | 2020-05-06 15:24 | PAT Medication Instructions ---
Medication Instructions Date of Service May 06, 2020 Home Medications Medication Instructions Recorded potassium citrate 5 mEq (540 mg) 10 meq PO TID #90 tab 02/28/20 tablet,extended release Iron Chews 15 mg PO QAM atorvastatin 40 mg PO HS calcium carbonate-vitamin D3 [Calcium 500 + D] 1 tab PO TID cholecalciferol (vitamin D3) 1,000 unit PO QAM cyanocobalamin (vitamin B-12) 1,000 mcg SUBLINGUAL QAM omega 4-kze-yin-fish oil [Fish Oil] 1 cap PO BID sildenafil 100 mg PO DAILY PRN warfarin 10 mg PO 6XWK warfarin [Coumadin] 2.5 mg PO WK acetaminophen 650 mg PO TID PRN potassium citrate 5 mEq (540 mg) tablet,extended release 10 meq PO TID multivitamin 1 tab PO QAM quinine-vitamin E [Leg Cramp Relief] 1 cap PO DAILY PRN ASK your prescriber and surgeon warfarin 10 mg PO 6XWK warfarin [Coumadin] 2.5 mg PO WK STOP taking 2 weeks before surgery If surgery is within 2 weeks, stop taking as soon as possible. omega 0-ddp-owl-fish oil [Fish Oil] 1 cap PO BID quinine-vitamin E [Leg Cramp Relief] 1 cap PO DAILY PRN DO NOT take the morning of surgery Iron Chews 15 mg PO QAM calcium carbonate-vitamin D3 [Calcium 500 + D] 1 tab PO TID cholecalciferol (vitamin D3) 1,000 unit PO QAM cyanocobalamin (vitamin B-12) 1,000 mcg SUBLINGUAL QAM sildenafil 100 mg PO DAILY PRN potassium citrate 5 mEq (540 mg) tablet,extended release 10 meq PO TID multivitamin 1 tab PO QAM Take morning of surgery With a small sip of water, OTHERWISE NOTHING TO EAT OR DRINK AFTER MIDNIGHT: acetaminophen 650 mg PO TID PRN (if needed, may be taken up to four hours before surgery) Take evening before surgery atorvastatin 40 mg PO HS calcium carbonate-vitamin D3 [Calcium 500 + D] 1 tab PO TID acetaminophen 650 mg PO TID PRN (if needed) potassium citrate 5 mEq (540 mg) tablet,extended release 10 meq PO TID Other Notes If you have any questions please call us at [phone] or [phone] or [phone] or [phone]
--- NOTE | 2020-05-07 11:15 | Anesthesiology Consultation ---
Date of Service May 07, 2020 Assessment & Plan (1) Encounter for pre-operative examination: COVID Status: As of 05/07 assessment, patient denies travel to endemic area, known exposure/sick contacts, or symptoms of COVID19. Patient instructed that they and their household members must follow strict social distancing guidelines, wear a mask in public and avoid travel/events/gatherings for 14 days prior to surgery. Preoperative COVID19 testing to be completed prior to surgery per surgeon's arrangements. Patient made aware to self-isolate as much as possible between COVID testing and surgery. Chart Review Chart Review: Acceptable Risk for Surgery and Patient seen in Pre Admission Testing Teaching & Discussion Instructed NPO after midnight before surgery, except medications with 15 cc of water. Medication instructions provided according to the PAT guidelines. History Surgery Operation Date: 05/28/20 09:35 Proposed Procedures p L4-S1 Revision Decompression and Fusion Spinal Cord Monitoring - Alberto Stephen, Height/Weight Height: 5 ft 9 in Weight: 127.3 kg Allergies Allergy/AdvReac Type Severity Reaction Status Date / Time aspirin AdvReac Mild "DUE TO Unverified 05/08/20 10:20 BLOOD CLOT IN LEFT LEG" Medications Home Medications Medication Instructions Recorded Confirmed Last Taken Iron Chews 15 mg PO QAM 08/02/18 04/23/20 11/24/19 07:30 atorvastatin 40 mg PO HS 08/02/18 04/23/20 09/22/18 calcium carbonate-vitamin D3 1 tab PO TID 08/02/18 04/23/20 09/23/18 [Calcium 500 + D] cholecalciferol (vitamin D3) 1,000 unit PO QAM 08/02/18 04/23/20 11/24/19 07:30 cyanocobalamin (vitamin B-12) 1,000 mcg SUBLINGUAL QAM 08/02/18 04/23/20 11/24/19 07:30 omega 5-mgw-ban-fish oil [Fish Oil] 1 cap PO BID 08/02/18 04/23/20 11/17/19 sildenafil 100 mg PO DAILY PRN 08/02/18 04/23/20 08/02/18 warfarin 10 mg PO 6XWK 08/02/18 04/23/20 11/17/19 warfarin [Coumadin] 2.5 mg PO WK 0704/23/20 09/19/18 acetaminophen 650 mg PO TID PRN 11/16/19 04/23/20 Unknown potassium citrate 5 mEq (540 mg) 10 meq PO TID #90 tab 02/28/20 04/23/20 Unknown tablet,extended release multivitamin 1 tab PO QAM 04/23/20 04/23/20 Unknown quinine-vitamin E [Leg Cramp 1 cap PO DAILY PRN 04/23/20 04/23/20 Unknown Relief] Past Medical History Medical History Chronic back pain Degenerative disc disease 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 DVT (deep venous thrombosis) left leg s/p back surgery (2011) > Coumadin Hyperlipidemia hx (weight loss ~150lbs, no medication since) Hypertension hx (weight loss ~150lbs, no medication since) Kidney stones Osteoarthritis Sleep apnea hx (weight loss ~150lbs, no machine since) UTI (urinary tract infection) hx Exercise / Class Metabolic Activity II 4-5 Yardwork/Stairs/Walk up hill (Denies CP or SOB with 1 FOS, limited activ ity lately due to pain) Past Family History Family History Other No family history of adverse response to anesthesia No pertinent family history Denies family history of Kidney disease Past Surgical History Surgical History Denervation of muscle H/O bariatric surgery 2013 History of ankle surgery to remove a nail History of appendectomy History of carpal tunnel release left along with trigger finger release History of colonoscopy +cologuard testing History of esophagogastroduodenoscopy (EGD) History of knee replacement Left (2016) History of laminectomy L3-S1 History of lithotripsy History of repair of rotator cuff right x2 History of tooth extraction Hx of vasectomy S/P left knee arthroscopy tendon repair S/P right knee arthroscopy x2 Past Anesthesia History No Hx of Anesthesia Complications and No Family Hx of Anesthesia Complications History of PONV No Hx of PONV and No Hx of Motion Sickness Social History Smoking Status: Former smoker tobacco type: cigarettes Do You Dip or Chew Tobacco: No Smoking End Date: 1994 Hx Alcohol Use: Yes Alcohol type: beer and hard liquor alcohol intake frequency: a few times a month Hx Substance Use: No substance use type: does not use Review of Systems Pt denies any recent chest pain, shortness of breath, palpitations, cough, fever, URI, or uncontrolled acid reflux. Physical Exam Vital Signs BP: 128/83 P: 71bpm SPO2: 96% RA T: 97.7 F R: 16 ENMT Mouth: + dental restorations (six implants); no chipped teeth and no loose teeth Thyromental Distance: > or= 3.5 Finger Breadths Mallampati Class: II Neck normal visual inspection; neck extension not limited Respiratory normal respiratory effort, lungs clear to auscultation Cardiovascular RRR, no murmur, no edema Testing Laboratory Results 05/07/20 11:20 05/07/20 11:20 PT 28.1 Seconds (9.0-12.0) H 05/07/20 11:20 INR 3.0 (0.9-1.1) H 05/07/20 11:20 APTT 44.5 Seconds (21.0-31.0) H 05/07/20 11:20 Urine Color Yellow 05/07/20 Unknown Urine Appearance Clear (Clear) 05/07/20 Unknown Urine pH 6.5 (4.5-7.5) 05/07/20 Unknown Ur Specific [place] 1.026 (1.000-1.030) 05/07/20 Unknown Urine Protein Negative (Negative) 05/07/20 Unknown Urine Glucose (UA) Negative (Negative) 05/07/20 Unknown Urine Ketones Negative (Negative) 05/07/20 Unknown Urine Nitrite Negative (Negative) 05/07/20 Unknown Ur Leukocyte Esterase Trace (Negative) H 05/07/20 Unknown Urine WBC (Auto) 1-5 /hpf (0-5) 05/07/20 Unknown Urine RBC (Auto) 0-4 /hpf (0-4) 05/07/20 Unknown U Hyaline Cast (Auto) 0 /lpf (0-5) 05/07/20 Unknown U Epithel Cells (Auto) >30 /lpf (0-5) H 05/07/20 Unknown Urine Bacteria (Auto) Negative (Negative) 05/07/20 Unknown Blood Type A Positive 05/07/20 11:20 Antibody Screen NEGATIVE 05/07/20 11:20 Electrocardiogram Date: 11/23/19 Findings: + SB @ (59bpm) No significant change from 2017 EKG. Chest X-Ray Date: 11/23/19 Findings: + NAD
[2020-05-07 12:14] LABS: Basophils # (auto) 0.03 K/uL (0-0.2); Basophils % (auto) 0.4 %; Eosinophils # (auto) 0.21 K/uL (0-0.5); Eosinophils % (auto) 2.5 %; Hematocrit (blood only) 42.4 % (42-52); Hemoglobin 14.7 g/dL (14.0-18.0); Immature Granulocytes # (auto) 0.01 K/uL (0.00-0.02); Immature Granulocytes % (auto) 0.1 %; Lymphocytes # (auto) 1.59 K/uL (1.2-3.4); Lymphocytes % (auto) 18.9 %; Mean Corpuscular Hemoglobin 31.2 pg (25-34); Mean Corpuscular Hgb Conc 34.7 g/dL (32-36); Mean Platelet Volume 9.7 fL (7.4-10.4); Monocytes # (auto) 0.59 K/uL (0.11-0.59); Neutrophils # (auto) 5.99 K/uL (1.4-6.5); Neutrophils % (auto) 71.1 %; Platelet Count 223 K/uL (130-400); RDW Coefficient of Variation 13.1 % (11.5-14.5); RDW Standard Deviation 43.3 fL (36.4-46.3); Red Blood Count 4.71 M/uL (4.7-6.1); White Blood Count 8.42 K/uL (4.8-10.8)
[2020-05-07 12:24] LABS: Appearance Urine Clear (Clear); Bacteria Urine Automated Negative (Negative); Bilirubin Urine Negative (Negative); Blood Urine Negative (Negative); Cast Urine Automated 0 /lpf (0-5); Color Urine Yellow; Epithelial Cell Urine Auto >30 /lpf (0-5); Glucose Urine UA Negative (Negative); Ketones Urine Negative (Negative); Leukocyte Esterase Urine Trace (Negative); Nitrite Urine Negative (Negative); Protein Urine Negative (Negative); RBC Urine Automated 0-4 /hpf (0-4); Specific Gravity Urine 1.026 (1.000-1.030); Urobilinogen Urine Negative (Negative); pH Urine 6.5 (4.5-7.5)
[2020-05-07 12:27] LABS: Partial Thromboplastin Ratio 1.7; Partial Thromboplastin Time 44.5 Seconds (21.0-31.0); Prothrombin Time 28.1 Seconds (9.0-12.0)
[2020-05-07 12:35] LABS: BUN Creatinine Ratio 18.1 (10-20); Calcium 9.2 mg/dl (8.5-10.1); Creatinine Clr Calc Pharmacy 84.3 ml/min; Est GFR (African American) 74.7; Est GFR (Non-African American) 64.4; Potassium 4.1 mmol/L (3.5-5.1)
[~2020-05-28 07:32] MED LIST changes: -ACET-1138 PO; +ACETAMINOPHEN 500 MG TAB PO SCH; -CALC500C70 PO; -CHOL1000 PO; -CLB200 PO; -CYAN10005 PO; +CeleBREX 200 MG CAP PO SCH; -FERR28TA2 PO; +GABAPENTIN 600 MG DOSE PO SCH; +LR 15ML/HR IV SCH; -LVNIS40 SQ; -MULT-506 PO; -ONDA8TAB6 PO; -RXC5 PO; -SNK PO; -TRAM-10 PO; -WARF5TAB7 PO
[2020-05-28 08:57] LABS: INR 1.1 (0.9-1.1); Partial Thromboplastin Time 26.6 Seconds (21.0-31.0); Prothrombin Time 10.7 Seconds (9.0-12.0)
[2020-05-28] MEDS ORDERED: fentaNYL citrate 100 MCG/2 ML VIAL ONE (09:03)
[2020-05-28] MEDS ORDERED: MIDAZOLAM HCL 1 MG/ML 2ML VIAL ONE (09:03)
--- NOTE | 2020-05-28 09:37 | History & Physical Bridge Note ---
Date of Service May 28, 2020 History & Physical Bridge Note I have examined the patient, reviewed the History & Physical and in the interval since the performance of the History & Physical I have noted the following changes of clinical significance: no changes noted
--- NOTE | 2020-05-28 09:38 | History & Physical Report ---
Date of Service May 28, 2020 Assessment & Plan Admission and Anticipated Discharge Date Admission Date: L4-S1 revision decompression fusion History of Present Illness Chief Complaint: Back and leg pain Primary Care Provider: Mariana Bailey PA-C This is a 64-year-old male presents with chronic persistent back and leg pain. After failing course of nonoperative care is here for surgical invention. Allergies Allergy/AdvReac Type Severity Reaction Status Date / Time aspirin AdvReac Mild "DUE TO Verified 05/28/20 08:11 BLOOD CLOT IN LEFT LEG" Home Medications Medication Instructions Recorded Confirmed Type Iron Chews 15 mg PO QAM 08/02/18 05/28/20 History atorvastatin 40 mg PO HS 08/02/18 05/28/20 History calcium carbonate-vitamin D3 1 tab PO TID 08/02/18 05/28/20 History [Calcium 500 + D] cholecalciferol (vitamin D3) 1,000 unit PO QAM 08/02/18 05/28/20 History cyanocobalamin (vitamin B-12) 1,000 mcg SUBLINGUAL QAM 08/02/18 05/28/20 History omega 8-tfz-sds-fish oil [Fish Oil] 1 cap PO BID 08/02/18 05/28/20 History sildenafil 100 mg PO DAILY PRN 08/02/18 05/28/20 History warfarin 10 mg PO 6XWK 08/02/18 05/28/20 History warfarin [Coumadin] 2.5 mg PO WK 09/23/18 05/28/20 History acetaminophen 650 mg PO TID PRN 11/16/19 05/28/20 History potassium citrate 5 mEq (540 mg) 10 meq PO TID #90 tab 02/28/20 05/28/20 Rx tablet,extended release multivitamin 1 tab PO QAM 04/23/20 05/28/20 History quinine-vitamin E [Leg Cramp 1 cap PO DAILY PRN 04/23/20 05/28/20 History Relief] Past Med/Surg History Medical History Chronic back pain Degenerative disc disease 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 DVT (deep venous thrombosis) left leg s/p back surgery (2011) > Coumadin Hyperlipidemia hx (weight loss ~150lbs, no medication since) Hypertension hx (weight loss ~150lbs, no medication since) Kidney stones Osteoarthritis Sleep apnea hx (weight loss ~150lbs, no machine since) UTI (urinary tract infection) hx Surgical History Denervation of muscle H/O bariatric surgery 2013 History of ankle surgery to remove a nail History of appendectomy History of carpal tunnel release left along with trigger finger release History of colonoscopy +cologuard testing History of esophagogastroduodenoscopy (EGD) History of knee replacement Left (2016) History of laminectomy L3-S1 History of lithotripsy History of repair of rotator cuff right x2 History of tooth extraction Hx of vasectomy S/P left knee arthroscopy tendon repair S/P right knee arthroscopy x2 Family History Other No family history of adverse response to anesthesia No pertinent family history Denies family history of Kidney disease Social History Smoking Status: Former smoker Smoking End Date: 1994; Second Hand Exposure: No; Do You Dip or Chew Tobacco: No; Tobacco Cessation Education Requested by Patient: No Hx Alcohol Use: Yes Alcohol type: beer and hard liquor Hx Substance Use: No Preferred Language: Hungarian Communication Ability: Effective Visual Impairment: No Limitations Hearing Ability: Normal Wireless Network Engineer Required: No Beliefs That Will Affect Care: None Current Living Situation: Spouse Other Information That Helps Us Care for You: No Feels Safe at Home: Yes Safety Concerns: Feels Safe At This Time Assistive Devices: Glasses Physical Exam Physical Exam: Patient is alert and oriented Heart regular in rhythm Lungs clear to auscultation Results & Data ([facility]) Vital Signs (Past 12 Hours) Vital Signs Temp Pulse Resp BP Pulse Ox 05/28/20 08:17 36.7 C 62 20 134/75 93
[2020-05-28] MEDS ORDERED: ePHEDrine sulfate 50 MG/ML AMP IV PRN (09:55)
[2020-05-28] MEDS ORDERED: fentaNYL citrate 100 MCG/2 ML VIAL IV PRN (09:55)
[2020-05-28] MEDS ORDERED: NALOXONE HCL 0.4 MG/1 ML VIAL/CARP IV PRN ×2 (09:55→14:19)
[2020-05-28] MEDS ORDERED: LABETALOL HCL IV 5 MG/ML 20ML IV PRN (09:55)
[2020-05-28] MEDS ORDERED: ONDANSETRON INJ 2 MG/ML 2 ML VIAL IV PRN ×2 (09:55→14:19)
[2020-05-28] MEDS ORDERED: FLUMAZENIL 0.1 MG/1 ML 10 ML VIAL IV PRN (09:55)
[2020-05-28] MEDS ORDERED: PROMETHAZINE HCL 12.5 MG in SODIUM CHLORIDE 0.9% 50 ML IV PRN ×2 (09:55→14:19)
[2020-05-28] MEDS ORDERED: ATROPINE SULFATE 0.1 MG/ML 10ML SYR IV PRN (09:55)
[2020-05-28] MEDS ORDERED: HYDROmorphone INJ 1 MG/ML SYRINGE IV PRN ×2 (09:55→14:19)
[2020-05-28] MEDS ORDERED: BUPIVACAINE/EPINEPHRINE 0.5% MPF 1:200,000 30 ML VIAL ONE (09:59)
[2020-05-28] MEDS ORDERED: BACITRACIN INJ 50,000 UNIT VIAL ONE (09:59)
[2020-05-28] MEDS ORDERED: PROPOFOL IV EMULSION 10 MG/ML 20 ML VIAL IV ONE (10:31)
[2020-05-28] MEDS ORDERED: ROCURONIUM BROMIDE 10 MG/ML 5 ML VIAL IV ONE ×4 (10:31→10:42)
[2020-05-28] MEDS ORDERED: DEXAMETHASONE SOD INJ 4 MG/ML VIAL ONE (10:31)
[2020-05-28] MEDS ORDERED: ONDANSETRON INJ 2 MG/ML 2 ML VIAL ONE (10:31)
[2020-05-28] MEDS ORDERED: LIDOCAINE HCL 2% 2 ML VIAL/AMP(20MG/ML) INFIL ONE (10:31)
[2020-05-28] MEDS ORDERED: KETAMINE 50 MG/5 ML SYRINGE ONE (10:32)
[2020-05-28] MEDS ORDERED: PHENYLEPHRINE HCL 10 MG/ML VIAL ONE (11:46)
[2020-05-28] MEDS ORDERED: HYDROmorphone INJ 2 MG/ML SYR/VIAL ONE (11:52)
[2020-05-28] MEDS ORDERED: FLOSEAL HEMOSTATIC MATRIX 10ML TOP ONE (12:28)
--- NOTE | 2020-05-28 12:32 | Operative Report ---
Post Operative Report Pre & Post Diagnosis Operation Date: 05/28/20 10:05 Pre-Op Diagnosis: Spinal Stenosis of Lumbar Region with Neurogenic Claudication Spondylolisthesis L4-L5 Morbid obesity Post-Op Diagnosis: Same I identified the patient and participated in the time-out.: Yes Procedure Operation Date: 05/28/20 10:05 Actual Procedures #1 revision lumbar decompression with bilateral medial facetectomies and foraminotomies L4-5 and L5-S1 per #2 posterior spinal fusion L4-5 L5-S1 per #3 placement posterior instrumentation L4-5 L5-S1. #4 interbody fusion L4-5 L5-S1. #5 placement peek cage 14 x 26 mm at L4-5 and 15 x 26 mm at L5-S1. #6 placement locally harvested morselized autograft in the posterior lateral gutters. #7 placement of infuse collagen sponge, master graft in the posterior lateral gutters and I factor in the interbody spaces. Surgeon Alberto Stephen, DO Roll Grinder Operator Trang Garibay Estimated Blood Loss 200 Findings See Below The patient is 5 foot 9 inches tall weighing over 125 kg with a BMI in excess of 40. Patient's body habitus did contribute to significant technical difficulty requiring her deepest retractors longus instruments in order to perform his procedure. This had at least 50% increase to the operative time. Specimens None Indications This is a 64-year-old male who presents above-mentioned diagnosis after failing course of nonoperative care is here for the above-mentioned procedure. Description of Procedure Patient was met with identified informed consent obtained. Patient was then taken to the operative suite underwent a patient placed in a prone position injectable top Eliceo frame. All bony prominences well-padded eyes inspected to ensure no external pressure placed upon up at this point the lumbar spine was prepped and draped in a sterile fashion. Sharp dissection with the assistance of Bovie cautery was performed down to and exposing the remaining lamina and transverse processes of L4-L5 and sacral ala bilaterally. From caudal to cephalad fashion revision decompression including medial facetectomies and foraminotomies at L4-5 L5-S1 was performed. Pedicle screws were then placed in L4-L5 and S1 levels bilaterally with assistance of fluoroscopy and appropriately sized bhargav placed. By way of a transforaminal portion right complete discectomy of L5-S1 was performed endplates curetted to subcortical any bone and a 15 x 26 mm peek cage filled with I factor was tapped in position. Then proceeded L4-[address] of a transforaminal portion right complete discectomy performed endplates curetted to subcortical bone and a 14 x 26 mm peek cage filled with I factor tapped in position. The rods were then compressed locked into final position bilaterally. The transverse processes of L 4 L5 and sacral ala burred to subcortical bleeding bone. Infuse collagen sponge master graft local autograft was placed in the posterior gutters. 15 round ARPIT drain inserted. The incision was then closed with 1 Vicryl fascia 2-0 Vicryl subcutaneously and 4 Monocryl for final skin closure. Steri-Strip sterile dressings placed. Patient will continue PACU stable condition. Please note spinal cord monitoring was utilized at the procedure no changes noted. Lastly Trang Garibay was present at the entire surgery involved in patient positioning complex portions of the surgery and final skin closure. I attest to the content of the Intraoperative Record and any orders documented therein. Any exceptions are noted below.
--- NOTE | 2020-05-28 12:39 | Fluoroscopy Report ---
FL lumbar spine 2-3V CLINICAL HISTORY: L4-S1 DECOMPRESSION AND FUSION COMPARISON STUDY: None FLUOROSCOPY TIME: 22 seconds. NUMBER OF FLUOROSCOPIC IMAGES: 2 FINDINGS: 2 intraoperative fluoroscopic spot images demonstrate postsurgical changes of L4-5 and L5-S 1 discectomies interbody fusions. There is posterior spinal fusion with L4, L5 and S1 pedicle screws IMPRESSION: Intraoperative fluoroscopic spot images demonstrating an L4-S1 spinal decompression and fusion ACT 112: Negative or not required by law. Electronically signed by: Dionisio Cardenas M.D. 05/28/2020 12:38 PM
--- NOTE | 2020-05-28 13:47 | Anesthesiology Progress Note ---
Date of Service May 28, 2020 Anesthesia Post Procedure Vital Signs Vital Signs: Temp Pulse Resp BP BP Pulse Ox 05/28/20 13:35 36.6 C 58 L 16 132/61 97 05/28/20 13:25 63 18 186/98 H 97 05/28/20 13:15 53 L 18 149/78 H 97 05/28/20 13:05 54 L 17 145/79 H 95 05/28/20 12:56 36.6 C 58 L 16 158/87 H 95 05/28/20 08:17 36.7 C 62 20 134/75 93 Pain Intensity Lower Back: Pain Intensity: 0 Bilateral Knee: Pain Intensity: 6 Bilateral 4th Digit: Pain Intensity: 6 Transfer of Care Handoff Completed per policy Notes Mental Status: alert / awake / arousable Patient Amnestic to Procedure: Yes Nausea / Vomiting: adequately controlled Pain: adequately controlled Airway Patency, RR, SpO2: stable & adequate BP & HR: stable & adequate Hydration State: stable & adequate Anesthetic Complications: no major complications apparent
[2020-05-28] MEDS: SODIUM CHLORIDE 0.9% 1000ML 1,000 ML IV SCH ×2 (13:50→19:36)
[2020-05-28] MEDS ORDERED: ACETAMINOPHEN 500 MG TAB PO PRN (14:19)
[2020-05-28] MEDS ORDERED: hydrOXYzine HCl 25 MG TAB PO PRN (14:19)
[2020-05-28] MEDS ORDERED: FAMOTIDINE 20 MG TAB PO PRN (14:19)
[2020-05-28] MEDS ORDERED: diphenhydrAMINE Capsule 25 MG CAP PO PRN (14:19)
[2020-05-28] MEDS ORDERED: ALUMINUM/MAGNESIUM SUSP 30 ML UDC PO PRN (14:19)
[2020-05-28] MEDS ORDERED: MAGNESIUM HYDROXIDE SUSP 30 ML UDC PO PRN (14:19)
[2020-05-28] MEDS ORDERED: DO NOT ADMINISTER FLU VACCINE PRN (14:19)
[2020-05-28] MEDS ORDERED: ACETAMINOPHEN 1,000 MG/100 ML VIAL IV PRN (14:19)
[2020-05-28] MEDS ORDERED: traMADol HCL 50 MG TABLET PO PRN (14:19)
[2020-05-28] MEDS ORDERED: SOD PHOSPHATE/SOD BIPHOSPHATE ENEMA 132 ML BTL PR PRN (14:19)
[2020-05-28] MEDS ORDERED: LORazepam 0.5 MG TAB PO PRN (14:19)
[2020-05-28] MEDS ORDERED: DO NOT ADMINISTER PNEUMOCOCCAL VACCINE PRN (14:19)
[2020-05-28] MEDS ORDERED: bisacodyL 10 MG SUPP PR PRN (14:19)
[2020-05-28] MEDS ORDERED: ONDANSETRON 4 MG OD TAB PO PRN (14:19)
[2020-05-28] MEDS ORDERED: METOCLOPRAMIDE HCL INJ 5 MG/ML 2 ML VIAL IV PRN (14:19)
[2020-05-28] MEDS ORDERED: LORazepam 0.5 MG/1 ML VIAL IV PRN (14:19)
[2020-05-28] MEDS: POTASSIUM CITRATE 10 MEQ TAB PO SCH ×2 (16:29→20:44)
[2020-05-28] MEDS: oxyCODONE HCL IR 5 MG TAB (IMMEDIATE RELEASE) PO PRN (17:39)
[2020-05-28] MEDS: ceFAZolin 2000MG 2,000 MG/15 ML SYR IV SCH (17:40)
--- NOTE | 2020-05-28 17:49 | Hospitalist Consultation ---
Date of Consultation May 28, 2020 Supervising Physician Co-Signing Physician Notes Attending addendum The patient was seen and examined in medical floor He has history of gastric bypass and also history of DVT on Coumadin apparently underwent a lumbar back surgery today He has been having some pain at the back with some numbness in the legs but denies any other significant symptoms Denies any chest pain, palpitation or shortness of breath No abdominal pain nausea and/or vomiting On exam Lying in bed comfortably Hemodynamically stable Chest-clear to auscultate bilaterally Heart S1-S2, regular- Abdomen-benign Extremities-negative for any edema Labs and imaging studies reviewed Remains medically stable, monitor labs while in the hospital Will need to start Coumadin as soon as possible Agree with assessment and plan as outlined above by Madalyn Greco History of Present Illness Reason for Consultation: Post Op Medical Management Requesting Physician: Dr. Stephen Attending Physician: Dr. Greco History of Present Illness 64 year old male with PMH renal calculi, hx of gastric bypass, hx of DVT on [place], Allergies Allergy/AdvReac Type Severity Reaction Status Date / Time aspirin AdvReac Mild "DUE TO Verified 05/28/20 08:11 BLOOD CLOT IN LEFT LEG" Home Medications Medication Instructions Recorded Confirmed Type Iron Chews 15 mg PO QAM 08/02/18 05/28/20 History atorvastatin 40 mg PO HS 08/02/18 05/28/20 History calcium carbonate-vitamin D3 1 tab PO TID 08/02/18 05/28/20 History [Calcium 500 + D] cholecalciferol (vitamin D3) 1,000 unit PO QAM 08/02/18 05/28/20 History cyanocobalamin (vitamin B-12) 1,000 mcg SUBLINGUAL QAM 08/02/18 05/28/20 History omega 6-osk-tuu-fish oil [Fish Oil] 1 cap PO BID 08/02/18 05/28/20 History sildenafil 100 mg PO DAILY PRN 08/02/18 05/28/20 History warfarin 10 mg PO SUTUWETHFRSA 08/02/18 05/28/20 History warfarin [Coumadin] 5 mg PO MO 09/23/18 05/28/20 History acetaminophen 650 mg PO TID PRN 11/16/19 05/28/20 History potassium citrate 5 mEq (540 mg) 10 meq PO TID #90 tab 02/28/20 05/28/20 Rx tablet,extended release multivitamin 1 tab PO QAM 04/23/20 05/28/20 History quinine-vitamin E [Leg Cramp 1 cap PO DAILY PRN 04/23/20 05/28/20 History Relief] Patient History Medical History Chronic back pain Degenerative disc disease 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 DVT (deep venous thrombosis) left leg s/p back surgery (2011) > Coumadin Hyperlipidemia hx (weight loss ~150lbs, no medication since) Hypertension hx (weight loss ~150lbs, no medication since) Kidney stones Osteoarthritis Sleep apnea hx (weight loss ~150lbs, no machine since) UTI (urinary tract infection) hx Surgical History Denervation of muscle H/O bariatric surgery 2013 History of ankle surgery to remove a nail History of appendectomy History of carpal tunnel release left along with trigger finger release History of colonoscopy +cologuard testing History of esophagogastroduodenoscopy (EGD) History of knee replacement Left (2016) History of laminectomy L3-S1 History of lithotripsy History of repair of rotator cuff right x2 History of tooth extraction Hx of vasectomy S/P left knee arthroscopy tendon repair S/P right knee arthroscopy x2 Family History Other No family history of adverse response to anesthesia No pertinent family history Denies family history of Kidney disease Social History Smoking Status: Former smoker Smoking End Date: 1994; Second Hand Exposure: No; Do You Dip or Chew Tobacco: No; Tobacco Cessation Education Requested by Patient: No Hx Alcohol Use: Yes Alcohol type: beer and hard liquor Hx Substance Use: No Preferred Language: Monegasque Communication Ability: Effective Visual Impairment: No Limitations Hearing Ability: Normal Oyster Picker Required: No Beliefs That Will Affect Care: None Current Living Situation: Spouse Other Information That Helps Us Care for You: No Feels Safe at Home: Yes Safety Concerns: Feels Safe At This Time Assistive Devices: Glasses Results & Data Results & Data ([facility]) Vital Signs (Past 12 Hours) Vital Signs Temp Pulse Resp BP BP Pulse Ox 05/28/20 17:04 36.5 C 78 16 116/68 91 05/28/20 15:54 36.5 C 73 16 104/61 98 05/28/20 14:43 67 16 115/68 92 05/28/20 14:20 36.5 C 67 16 120/68 94 05/28/20 13:50 36.4 C L 72 16 143/80 H 97 05/28/20 13:35 36.6 C 58 L 16 132/61 97 05/28/20 13:25 63 18 186/98 H 97 05/28/20 13:15 53 L 18 149/78 H 97 05/28/20 13:05 54 L 17 145/79 H 95 05/28/20 12:56 36.6 C 58 L 16 158/87 H 95 05/28/20 08:17 36.7 C 62 20 134/75 93
--- NOTE | 2020-05-28 19:48 | Hospitalist Consultation ---
Date of Consultation May 28, 2020 Assessment & Plan (1) History of back surgery: - POD#0 L4-S1 revision of decompression and fusion by Dr. Stephen - activity and wound care orders as per ortho - pain control with bowel regimen - PT/OT - monitor H/H for acute blood loss anemia and transfuse blood products PRN -EBL 200 cc (2) History of DVT (deep vein thrombosis): -Remote history of DVT anticoagulated on Coumadin -Resume anticoagulation per the discretion of spine Ortho (3) Hyperlipidemia: -Continue statin (4) DVT prophylaxis: -TEDs/SCDs as per spine orthopedics Thank you for this consultation. We will follow the patient with you during their hospital stay. You can reach a member of the [facility] Hospitalist Team 28/09 via pager @ [phone]. Supervising Physician Co-Signing Physician Notes Attending addendum The patient was seen and examined in medical floor He has history of gastric bypass and also history of DVT on Coumadin apparently underwent a lumbar back surgery today He has been having some pain at the back with some numbness in the legs but denies any other significant symptoms Denies any chest pain, palpitation or shortness of breath No abdominal pain nausea and/or vomiting On exam Lying in bed comfortably Hemodynamically stable Chest-clear to auscultate bilaterally Heart S1-S2, regular- Abdomen-benign Extremities-negative for any edema Labs and imaging studies reviewed Remains medically stable, monitor labs while in the hospital Will need to start Coumadin as soon as possible Agree with assessment and plan as outlined above by Madalyn Greco History of Present Illness Reason for Consultation: Postop medical management Requesting Physician: Dr. Stephen Attending Physician: Dr. Greco History of Present Illness 64-year-old male with PMH renal calculi, history of DVT anticoagulated on Coumadin, history of gastric bypass, and other problems listed below who is status post L4-S1 revision of decompression and fusion by Dr. Stephen. Postoperatively, the patient is doing well. He reports his pain is well cont rolled. Denies weakness, numbness, or tingling to lower extremities. No chest pain or shortness of breath. Denies lightheadedness and dizziness. No abdominal pain or nausea. Dover catheter is in place draining clear yellow urine. Allergies Allergy/AdvReac Type Severity Reaction Status Date / Time aspirin AdvReac Mild "DUE TO Verified 05/28/20 08:11 BLOOD CLOT IN LEFT LEG" Home Medications Medication Instructions Recorded Confirmed Type Iron Chews 15 mg PO QAM 08/02/18 05/28/20 History atorvastatin 40 mg PO HS 08/02/18 05/28/20 History calcium carbonate-vitamin D3 1 tab PO TID 08/02/18 05/28/20 History [Calcium 500 + D] cholecalciferol (vitamin D3) 1,000 unit PO QAM 08/02/18 05/28/20 History cyanocobalamin (vitamin B-12) 1,000 mcg SUBLINGUAL QAM 08/02/18 05/28/20 History omega 5-cyz-ypq-fish oil [Fish Oil] 1 cap PO BID 08/02/18 05/28/20 History sildenafil 100 mg PO DAILY PRN 08/02/18 05/28/20 History warfarin 10 mg PO SUTUWETHFRSA 08/02/18 05/28/20 History warfarin [Coumadin] 5 mg PO MO 09/23/18 05/28/20 History acetaminophen 650 mg PO TID PRN 11/16/19 05/28/20 History potassium citrate 5 mEq (540 mg) 10 meq PO TID #90 tab 02/28/20 05/28/20 Rx tablet,extended release multivitamin 1 tab PO QAM 04/23/20 05/28/20 History quinine-vitamin E [Leg Cramp 1 cap PO DAILY PRN 04/23/20 05/28/20 History Relief] Patient History Medical History Chronic back pain Degenerative disc disease 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 DVT (deep venous thrombosis) left leg s/p back surgery (2011) > Coumadin Hyperlipidemia hx (weight loss ~150lbs, no medication since) Hypertension hx (weight loss ~150lbs, no medication since) Kidney stones Osteoarthritis Sleep apnea hx (weight loss ~150lbs, no machine since) UTI (urinary tract infection) hx Surgical History Denervation of muscle H/O bariatric surgery 2013 History of ankle surgery to remove a nail History of appendectomy History of carpal tunnel release left along with trigger finger release History of colonoscopy +cologuard testing History of esophagogastroduodenoscopy (EGD) History of knee replacement Left (2017) History of laminectomy L3-S1 History of lithotripsy History of repair of rotator cuff right x2 History of tooth extraction Hx of vasectomy S/P left knee arthroscopy tendon repair S/P right knee arthroscopy x2 Family History Other No family history of adverse response to anesthesia No pertinent family history Denies family history of Kidney disease Social History Smoking Status: Former smoker Smoking End Date: 1994; Second Hand Exposure: No; Do You Dip or Chew Tobacco: No; Tobacco Cessation Education Requested by Patient: No Hx Alcohol Use: Yes Alcohol type: beer and hard liquor Hx Substance Use: No Preferred Language: [place] Islander Communication Ability: Effective Visual Impairment: No Limitations Hearing Ability: Normal 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 Beliefs That Will Affect Care: None Current Living Situation: Spouse Other Information That Helps Us Care for You: No Feels Safe at Home: Yes Safety Concerns: Feels Safe At This Time Assistive Devices: Glasses Review of Systems 2 Review of Systems: ROS per HPI, all other systems reviewed and negative Physical Exam Constitutional: WD/WN, vitals as above Eyes: PERRL, conjunctivae normal, anicteric sclerae ENMT: external ear and nose normal, oropharynx normal Respiratory: normal respiratory effort, lungs clear to auscultation Cardiovascular: Rate/Rhythm: regular rate and regular rhythm Vessels: normal peripheral pulses Extremities: no edema Gastrointestinal (Abdomen): normal bowel sounds, soft, nontender, no hepatosplenomegaly Musculoskeletal: no cyanosis or clubbing, extremities motor strength 5/5 S/p back surgery, pedal pushes and pulls strong bilaterally, drain in place draining bloody drainage Skin: no rashes, warm and dry Neurologic: PERRL, EOMI, accommodation nl, no face palsy, no dysarthria Psychiatric: A+Ox3, euthymic affect Genitourinary: Dover in place draining clear yellow urine Results & Data Results & Data ([facility]) Vital Signs (Past 12 Hours) Vital Signs Temp Pulse Resp BP BP Pulse Ox 05/28/20 17:04 36.5 C 78 16 116/68 91 05/28/20 15:54 36.5 C 73 16 104/61 98 05/28/20 14:43 67 16 115/68 92 05/28/20 14:20 36.5 C 67 16 120/68 94 05/28/20 13:50 36.4 C L 72 16 143/80 H 97 05/28/20 13:35 36.6 C 58 L 16 132/61 97 05/28/20 13:25 63 18 186/98 H 97 05/28/20 13:15 53 L 18 149/78 H 97 05/28/20 13:05 54 L 17 145/79 H 95 05/28/20 12:56 36.6 C 58 L 16 158/87 H 95 05/28/20 08:17 36.7 C 62 20 134/75 93
[2020-05-28] MEDS: CALCIUM 600MG + VIT D 400 IU TAB PO SCH (20:45)
[2020-05-28] MEDS: ATORVASTATIN 40 MG TAB PO SCH (20:45)
[2020-05-28] MEDS: DOCUSATE SODIUM/SENNA 50/8.6MG TAB PO SCH (21:16)
[2020-05-29] MEDS: ceFAZolin 2000MG 2,000 MG/15 ML SYR IV SCH (02:08)
[2020-05-29] MEDS: SODIUM CHLORIDE 0.9% 1000ML 1,000 ML IV SCH (02:08)
[2020-05-29] MEDS: POLYETHYLENE (MIRALAX) 17 GM PACK PO SCH ×4 (05:53→22:15)
[2020-05-29 06:01] LABS: Eosinophils # (auto) 0.01 K/uL (0-0.5); Eosinophils % (auto) 0.1 %; Hematocrit (blood only) 35.9 % (42-52); Hemoglobin 12.4 g/dL (14.0-18.0); Immature Granulocytes # (auto) 0.03 K/uL (0.00-0.02); Immature Granulocytes % (auto) 0.2 %; Lymphocytes # (auto) 0.83 K/uL (1.2-3.4); Lymphocytes % (auto) 5.7 %; Mean Corpuscular Hemoglobin 30.9 pg (25-34); Mean Corpuscular Hgb Conc 34.5 g/dL (32-36); Mean Corpuscular Volume 89.5 fL (80-100); Monocytes # (auto) 1.04 K/uL (0.11-0.59); Monocytes % (auto) 7.1 %; Neutrophils # (auto) 12.76 K/uL (1.4-6.5); Neutrophils % (auto) 86.9 %; Platelet Count 209 K/uL (130-400); RDW Coefficient of Variation 12.8 % (11.5-14.5); RDW Standard Deviation 41.8 fL (36.4-46.3); Red Blood Count 4.01 M/uL (4.7-6.1); White Blood Count 14.67 K/uL (4.8-10.8)
[2020-05-29 06:30] LABS: BUN Creatinine Ratio 15.2 (10-20); Calcium 8.5 mg/dl (8.5-10.1); Creatinine Clr Calc Pharmacy 94.8 ml/min; Est GFR (African American) 86.8; Est GFR (Non-African American) 74.8; Potassium 4.3 mmol/L (3.5-5.1)
[2020-05-29] MEDS: POTASSIUM CITRATE 10 MEQ TAB PO SCH ×3 (08:11→20:32)
[2020-05-29] MEDS: CYANOCOBALAMIN 500 MCG TABLET (VITAMIN B-12) PO SCH (08:11)
[2020-05-29] MEDS: CALCIUM 600MG + VIT D 400 IU TAB PO SCH ×2 (08:11→20:32)
[2020-05-29] MEDS: MULTIVITAMIN TAB PO SCH (08:11)
--- NOTE | 2020-05-29 08:40 | Orthopedic Progress Note ---
Date of Service May 29, 2020 Assessment & Plan (1) 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: Admission and Anticipated Discharge Date Admission Date: May 28, 2020 This time initiate physical therapy assess his progress hopefully discharge home the latter of this week. Subjective Back pain controlled leg symptoms improved Physical Exam Physical Exam: Patient is in the chair at the bedside. Skin strength testing. Peers comfortable. Results & Data ([facility]) Vital Signs (Past 12 Hours) Vital Signs Temp Pulse Resp BP Pulse Ox 05/29/20 07:43 36.6 C 61 17 106/69 98 05/29/20 02:36 36.6 C 69 16 115/68 96 05/28/20 22:42 36.5 C 76 16 110/66 95
[2020-05-29] MEDS ORDERED: IRON CARBONYL 15 MG PO SCH (09:00)
--- NOTE | 2020-05-29 09:54 | Hospitalist Progress Note ---
Date of Service May 29, 2020 Assessment & Plan (1) History of back surgery: POD#1 L4-S1 revision of decompression and fusion by Dr. Stephen EBL: 400ml; ARPIT drain 325ml - activity and wound care orders as per ortho - pain control with bowel regimen - PT/OT - monitor H/H for acute blood loss anemia and transfuse blood products PRN - hemoglobin 12.4 today, pre op 14.7, likely dilutional and expected blood loss from surgical procedure (2) History of DVT (deep vein thrombosis): -Remote history of DVT anticoagulated on Coumadin -Resume anticoagulation per the discretion of spine Ortho (3) Hyperlipidemia: -Continue statin (4) DVT prophylaxis: -TEDs/SCDs as per spine orthopedics Pt was seen and examined in collaboration with Dr. Greco, please see addendum Thank you for this consultation. We will follow the patient with you during their hospital stay. You can reach a member of the [facility] Hospitalist Team 28/09 via pager @ [phone]. Admission and Anticipated Discharge Date Admission Date: May 28, 2020 Supervising Physician Co-Signing Physician Notes Attending addendum: The patient was seen and examined in medical floor He has been feeling a lot better and denies any significant symptoms except some back pain He will be discharged on Wednesday as per the primary On examination Hemodynamically stable Chest-clear to auscultate bilaterally Heart-S1-S2 regular , Abdomen-benign Extremities-negative for any edema His labs and imaging studies reviewed Remains medically stable following back surgery Agree with assessment and plan as outlined above by Felipe Greco Subjective Patient was seen and evaluated in room 317. Follow-up lumbar surgery and history of DVT. He is sitting up in bedside chair eating breakfast. He overall feels well and offers no acute complaints. He denies fever, chills, sweats, lightheadedness, dizziness, chest pain, shortness breath, nausea, vomiting, abdominal pain. He is tolerating diet. He continues to have Dover catheter in place. Review of Systems Review of Systems: All systems reviewed & are unremarkable except as noted in HPI & below Physical Exam Physical Exam: Gen: WD/WN, male, sitting up in bedside chair, NAD, A&O x3 HEENT: Normocephalic, atraumatic, conjunctivae moist, sclerae anicteric, mucous membranes moist. Lung: Clear to Auscultation bilaterally, no wheezes/rales/rhonchi Heart: Regular rate, regular rhythm, no murmurs, rubs, or gallops Abdomen: Soft, NT, ND +BS x 4 Extremities: No edema, lumbar dressing CDI, ARPIT drain with serosanguineous drainage Skin: Warm, no rash, negative turgor. Results & Data Results & Data ([facility]) Vital Signs (Past 12 Hours) Vital Signs Temp Pulse Resp BP Pulse Ox 05/29/20 07:43 36.6 C 61 17 106/69 98 05/29/20 02:36 36.6 C 69 16 115/68 96 05/28/20 22:42 36.5 C 76 16 110/66 95 Laboratory Results Short CBC 05/29/20 Range/Units 05:40 WBC 14.67 H (4.8-10.8) K/uL Hgb 12.4 L (14.0-18.0) g/dL Hct 35.9 L (42-52) % Plt Count 209 (130-400) K/uL BMP 05/29/20 05:40 Sodium 141 Potassium 4.3 Chloride 108 H Carbon Dioxide 29 BUN 16 Creatinine 1.06 Glucose 118 H Calcium 8.5 Medications Administered Atorvastatin Calcium (Atorvastatin 40 Mg Tab) 40 mg PO [facility] Stop: 06/27/20 20:59 Last Admin: 05/28/20 20:45 Dose: 40 mg Documented by: [id number] Cyanocobalamin (Cyanocobalamin 500 Mcg Tablet (Vitamin B-12)) [facility] [place]: 06/28/20 08:59 Last Admin: 05/29/20 08:11 Dose: 1,000 mcg Documented by: [id number] Multivitamins (Multivitamin Tab) [facility] Stop: 06/28/20 08:59 Last Admin: 05/29/20 08:11 Dose: 1 tab Documented by: [id number] Multivitamins/Minerals (Calcium 600mg + Vit D 400 Iu Tab) 1 tab PO BID [facility]; Protocol Stop: 06/27/20 20:59 Last Admin: 05/29/20 08:11 Dose: 1 tab Documented by: [id number] Admin: 05/28/20 20:45 Dose: 1 tab Documented by: [id number] Oxycodone HCl (Oxycodone Hcl Ir 5 Mg Tab (Immediate Release)) 5 - 10 mg PO Q4H PRN PRN Reason: Moderate-Severe Pain & Pre PT Stop: 06/11/20 14:18 Last Admin: 05/28/20 17:39 Dose: 5 mg Documented by: [id number] Polyethylene Glycol (Polyethylene (Miralax) 17 Gm Pack) 17 gm PO Q6 [facility] Stop: 06/28/20 05:59 Last Admin: 05/29/20 05:53 Dose: 17 gm Documented by: [id number] Potassium Citrate (Potassium Citrate 10 Meq Tab) 10 meq PO TID [facility] Stop: 06/27/20 14:59 Last Admin: 05/29/20 08:11 Dose: 10 meq Documented by: [id number] Admin: 05/28/20 20:44 Dose: 10 meq Documented by: [id number] Admin: 05/28/20 16:29 Dose: 10 meq Documented by: [id number] Senna/Docusate Sodium (Docusate Sodium/Senna 50/8.6mg Tab) 2 tab PO HS [facility] Stop: 06/27/20 20:59 Last Admin: 05/28/20 21:16 Dose: 2 tab Documented by: [id number] Discontinued Medications Acetaminophen (Acetaminophen 500 Mg Tab) 1,000 mg PO PREOP [facility] Stop: 05/28/20 18:00 Last Admin: 05/28/20 08:25 Dose: 1,000 mg Documented by: [id number] Bacitracin (Bacitracin Inj 50,000 Unit Vial) Confirm Administered Dose 50,000 units .ROUTE .STK-MED ONE Stop: 05/28/20 10:00 Last Admin: 05/28/20 10:51 Dose: 50,000 units Documented by: [id number] Bupivacaine HCl/Epinephrine Bitart (Bupivacaine/Epinephrine 0.5% Mpf 1:200,000 30 Ml Vial) Confirm Administered Dose 30 ml .ROUTE .STK-MED ONE Stop: 05/28/20 10:00 Last Admin: 05/28/20 10:51 Dose: 30 ml Documented by: [id number] Celecoxib (Celebrex 200 Mg Cap) 200 mg PO PREOP ANNE Stop: 05/28/20 18:00 Last Admin: 05/28/20 08:26 Dose: Not Given Documented by: [id number] Gabapentin (Gabapentin 600 Mg Dose) 600 mg PO PREOP ANNE Stop: 05/28/20 18:00 Last Admin: 05/28/20 08:27 Dose: 600 mg Documented by: [id number] Lactated Ringer's (Lr) 1,000 mls @ 15 mls/hr IV .Q24H ANNE Stop: 05/29/20 05:59 Last Infusion: 05/28/20 10:06 Dose: 0 mls/hr Documented by: [id number] Admin: 05/28/20 08:25 Dose: 15 mls/hr Documented by: [id number] Cefazolin Sodium (Ancef 3000mg) 72.5 mls @ 130 mls/hr IV PREOP ANNE; Protocol Stop: 05/28/20 18:00 Last Infusion: 05/28/20 14:37 Dose: 0 mls/hr Documented by: [id number] Admin: 05/28/20 10:06 Dose: 130 mls/hr Documented by: [id number] Sodium Chloride (Nss 1000ml) 1,000 mls @ 150 mls/hr IV .Q6H40M ANNE Stop: 06/27/20 14:18 Last Infusion: 05/29/20 06:00 Dose: 0 mls/hr Documented by: [id number] Admin: 05/29/20 02:08 Dose: 150 mls/hr Documented by: [id number] Infusion: 05/29/20 02:08 Dose: 150 mls/hr Documented by: [id number] Admin: 05/28/20 19:36 Dose: 150 mls/hr Documented by: [id number] Infusion: 05/28/20 19:36 Dose: 150 mls/hr Documented by: [id number] Infusion: 05/28/20 18:13 Dose: 150 mls/hr Documented by: [id number] Admin: 05/28/20 13:50 Dose: 150 mls/hr Documented by: [id number] Cefazolin Sodium (Ancef 2000mg) 2,000 mg in 15 mls @ 3.75 mls/min IV Q8H ANNE; Protocol Stop: 05/29/20 02:03 Last Admin: 05/29/20 02:08 Dose: 3.75 mls/min Documented by: [id number] Admin: 05/28/20 17:40 Dose: 3.75 mls/min Documented by: [id number] Miscellaneous ( Floseal Hemostatic Matrix 10ml) 30 ml TOP ONCE ONE Stop: 05/28/20 12:29 Last Admin: 05/28/20 12:20 Dose: 20 ml Documented by: [id number]
[2020-05-29] MEDS: ATORVASTATIN 40 MG TAB PO SCH (20:32)
[2020-05-29] MEDS: DOCUSATE SODIUM/SENNA 50/8.6MG TAB PO SCH (20:32)
[2020-05-29] MEDS: HEPARIN SOD 5,000 UNIT/0.5 ML VIAL SQ SCH (20:32)
[2020-05-29] MEDS: oxyCODONE HCL IR 5 MG TAB (IMMEDIATE RELEASE) PO PRN ×2 (20:35→23:54)
[2020-05-30] MEDS: HYDROmorphone INJ 0.5 MG/0.5 ML SYR IV PRN ×2 (03:05→07:19)
[2020-05-30] MEDS: POLYETHYLENE (MIRALAX) 17 GM PACK PO SCH ×4 (05:34→23:20)
[2020-05-30] MEDS: oxyCODONE HCL IR 5 MG TAB (IMMEDIATE RELEASE) PO PRN ×4 (05:36→20:15)
[2020-05-30] MEDS: MULTIVITAMIN TAB PO SCH (08:39)
[2020-05-30] MEDS: CYANOCOBALAMIN 500 MCG TABLET (VITAMIN B-12) PO SCH (08:40)
[2020-05-30] MEDS: CALCIUM 600MG + VIT D 400 IU TAB PO SCH ×2 (08:40→20:16)
[2020-05-30] MEDS: POTASSIUM CITRATE 10 MEQ TAB PO SCH ×3 (08:40→20:17)
[2020-05-30] MEDS: HEPARIN SOD 5,000 UNIT/0.5 ML VIAL SQ SCH ×2 (08:41→20:18)
[2020-05-30] MEDS: dexAMETHasone 8 MG in SYRINGE 0 ML IV SCH (08:41)
--- NOTE | 2020-05-30 12:04 | Orthopedic Progress Note ---
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 I did start Coumadin this evening. He is on heparin 5000 twice daily subcu. Subjective Back pain controlled leg pain improved Physical Exam Physical Exam: Patient is good strength testing patient comfortable. Results & Data ([facility]) Vital Signs (Past 12 Hours) Vital Signs Temp Pulse Resp BP Pulse Ox 05/30/20 07:22 37.1 C 87 17 103/68 92
--- NOTE | 2020-05-30 15:31 | Hospitalist Progress Note ---
Date of Service May 30, 2020 Assessment & Plan (1) History of back surgery: POD#2 L4-S1 revision of decompression and fusion by Dr. Stephen EBL: 400ml; ARPIT drain 325ml - activity and wound care orders as per ortho - pain control with bowel regimen - PT/OT Blood loss -No significant blood loss noted - hemoglobin 12.4 today, pre op 14.7, likely dilutional and expected blood loss from surgical procedure -We will check CBC tomorrow (2) History of DVT (deep vein thrombosis): -Remote history of DVT anticoagulated on Coumadin -Coumadin has been restarted (3) Hyperlipidemia: -Continue statin (4) DVT prophylaxis: -TEDs/SCDs as per spine orthopedics Remains medically stable Thank you for this consultation. We will follow the patient with you during their hospital stay. You can reach a member of the [facility] Hospitalist Team 28/09 via pager @ [phone]. Admission and Anticipated Discharge Date Admission Date: May 28, 2020 Subjective 05/30/2020 The patient was seen and examined in medical floor Is a status post lumbar back surgery Still has significant amount of pain at the back and is plan to discharge tomorrow Denies any other symptoms Review of Systems Review of Systems: All systems reviewed and are unremarkable except as noted below Musculoskeletal: + back pain Physical Exam Physical Exam: Gen: WD/WN, male, sitting up in bedside chair, NAD, A&O x3 HEENT: Normocephalic, atraumatic, conjunctivae moist, sclerae anicteric, mucous membranes moist. Lung: Clear to Auscultation bilaterally, no wheezes/rales/rhonchi Heart: Regular rate, regular rhythm, no murmurs, rubs, or gallops Abdomen: Soft, NT, ND +BS x 4 Extremities: No edema, lumbar dressing CDI, ARPIT drain with serosanguineous drainage Skin: Warm, no rash, negative turgor. Constitutional: WD/WN, vitals as above Eyes: PERRL, conjunctivae normal, anicteric sclerae ENMT: external ear and nose normal, oropharynx normal Respiratory: normal respiratory effort, lungs clear to auscultation Cardiovascular: Rate/Rhythm: regular rate and regular rhythm Vessels: normal peripheral pulses Extremities: no edema Gastrointestinal (Abdomen): normal bowel sounds, soft, nontender, no hepatosplenomegaly Musculoskeletal: no cyanosis or clubbing, extremities motor strength 5/5 Skin: no rashes, warm and dry Neurologic: PERRL, EOMI, accommodation nl, no face palsy, no dysarthria Psychiatric: A+Ox3, euthymic affect Results & Data Results & Data ([facility]) Vital Signs (Past 12 Hours) Vital Signs Temp Pulse Resp BP BP Pulse Ox 05/30/20 14:50 37.0 C 76 17 115/71 91 05/30/20 07:22 37.1 C 87 17 103/68 92
[2020-05-30] MEDS ORDERED: WARFARIN SOD 10 MG TAB PO SCH (16:00)
[2020-05-30] MEDS: DOCUSATE SODIUM/SENNA 50/8.6MG TAB PO SCH (20:17)
[2020-05-30] MEDS: ATORVASTATIN 40 MG TAB PO SCH (20:17)
[2020-05-31] MEDS: oxyCODONE HCL IR 5 MG TAB (IMMEDIATE RELEASE) PO PRN ×3 (01:06→13:24)
[2020-05-31] MEDS: POLYETHYLENE (MIRALAX) 17 GM PACK PO SCH ×2 (06:11→12:06)
[2020-05-31 06:32] LABS: Basophils # (auto) 0.01 K/uL (0-0.2); Basophils % (auto) 0.1 %; Eosinophils # (auto) 0.03 K/uL (0-0.5); Eosinophils % (auto) 0.3 %; Hematocrit (blood only) 35.3 % (42-52); Hemoglobin 12.1 g/dL (14.0-18.0); Immature Granulocytes # (auto) 0.04 K/uL (0.00-0.02); Immature Granulocytes % (auto) 0.4 %; Lymphocytes # (auto) 1.09 K/uL (1.2-3.4); Lymphocytes % (auto) 9.6 %; Mean Corpuscular Hemoglobin 30.6 pg (25-34); Mean Corpuscular Hgb Conc 34.3 g/dL (32-36); Mean Corpuscular Volume 89.1 fL (80-100); Mean Platelet Volume 9.2 fL (7.4-10.4); Monocytes # (auto) 1.39 K/uL (0.11-0.59); Monocytes % (auto) 12.2 %; Neutrophils # (auto) 8.81 K/uL (1.4-6.5); Neutrophils % (auto) 77.4 %; Platelet Count 223 K/uL (130-400); RDW Coefficient of Variation 12.7 % (11.5-14.5); RDW Standard Deviation 41.5 fL (36.4-46.3); Red Blood Count 3.96 M/uL (4.7-6.1); White Blood Count 11.37 K/uL (4.8-10.8)
[2020-05-31 06:39] LABS: Prothrombin Time 10.1 Seconds (9.0-12.0)
[2020-05-31] MEDS: CYANOCOBALAMIN 500 MCG TABLET (VITAMIN B-12) PO SCH (07:42)
[2020-05-31] MEDS: POTASSIUM CITRATE 10 MEQ TAB PO SCH ×2 (07:42→13:24)
[2020-05-31] MEDS: dexAMETHasone 8 MG in SYRINGE 0 ML IV SCH (07:42)
[2020-05-31] MEDS: CALCIUM 600MG + VIT D 400 IU TAB PO SCH (07:43)
[2020-05-31] MEDS: MULTIVITAMIN TAB PO SCH (07:43)
[2020-05-31] MEDS: HEPARIN SOD 5,000 UNIT/0.5 ML VIAL SQ SCH (07:44)
--- NOTE | 2020-05-31 08:36 | Discharge Summary ---
Date of Service May 31, 2020 Admission HPI Per Admitting Provider This is a 64-year-old male presents with chronic persistent back and leg pain. After failing course of nonoperative care is here for surgical invention. 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 For this reason is brought to the operating room and is undergoing with a revision lumbar decomp ression from L4-S1 in conjunction with an instrumented fusion. He left the operating room with a ARPIT drain Dover in place was transferred to PACU in stable condition. Is then transferred to the orthopedic floor. He was seen by physical therapy postop day #1. Throughout his hospital course his dressings were clean dry and intact his calves remained supple nontender. Postop day #3 he was deemed safe for home discharge. He was to change dressing once daily till is dry once there is no drainage he may begin showering. He should refrain from driving to follow-up in the office and should not lift anything heavier than 5 to 7 pounds we will see him back in the office in approximately 2 weeks or sooner if he develops any increased pain drainage or fever.
== END 2020-05-31 15:47 | disposition home or self-care (01) | DRG 454 ==
LOC: ASU 07:32 → 3E 13:04